=== PATIENT | female | born 1940 | race Caucasian/White ===

== ENCOUNTER 2023-12-01 11:25 | Emergency (ER) | payer MEDICARE, SELFPAY ==
[2023-12-01] VITALS (7 sets, daily range): BP systolic 120–162; BP diastolic 64–94
[2023-12-01 12:43] LABS: % Basophils 1.3 % (0-2); % Immature Granulocytes 0.4 % (0-0.5); % Lymphocytes 13.4 % (20.5-51.1); % Monocytes 9.2 % (1.7-9.3); % Neutrophils 71.7 % (42.2-75.2); Absolute Basophils 0.1 10^3/uL (0-0.2); Absolute Eosinophils 0.3 10^3/uL (0-0.7); Absolute Lymphocytes 0.9 10^3/uL (1.2-3.4); Absolute Monocytes 0.7 10^3/uL (0.1-0.6); Hematocrit 35.3 % (37.0-47.0); Mean Corpuscular Hgb 32.5 pg (27.0-31.0); Mean Corpuscular Volume 95.7 fL (81.0-99.0); Mean Platelet Volume 9.9 fL (7.4-10.4); Nucleated Red Blood Cells % 0 %; Platelet Count 199 10^3/uL (130-400); Red Blood Cell Count 3.69 10^6/uL (4.20-5.40); Red Cell Dist. Width 12.6 % (11.5-14.5)
[2023-12-01 13:00] LABS: Blood Urea Nitrogen 27 mg/dl (7-17); Calcium 9.2 mg/dl (8.4-10.2); Carbon Dioxide 25 mmol/L (22-30); Chloride 108 mmol/L (98-107); Glucose 96 mg/dl (70-99); Sodium 137 mmol/L (135-145)
--- NOTE | 2023-12-01 13:17 | ED.GENMED ---
History of Present Illness
General
Chief Complaint: Cardiac Symptoms
Source: patient
Exam Limitations: none
Time Seen by Provider: 12/01/23 12:09
Travel History
Have you had any contact with someone who has COVID-19?: No
Do you have any symptoms of coronavirus? Fever > 100 degrees, chills, cough, shortness of breath, sore throat, loss of taste or smell, muscle aches, or headache?: No
History of Present Illness
History of Present Illness:
82-year-old female with a few episodes of lightheadedness this morning. Came on suddenly. Recent vein stripping. No chest pain or shortness of breath.
Past History
Past History
ED Past Medical History: HTN, Hypercholesterolemia, Hypothyroidism and Other (Cardiomyopathy)
ED Past Surgical History: Cardiac (ICD, ablation)
Social History
Tobacco: Former smoker (Quit 1986)
Alcohol: None
Drug: None
Personal:
Living: with family
Review of Systems
Review of Systems
All Other Systems: Not applicable
Respiratory: Reports no symptoms
Cardiac: Denies chest pain
ABD/GI: Reports no symptoms
Phy Exam
Physical Exam
Physical Exam:
GENERAL: Alert and oriented in no apparent distress
EYE: Orbits normal.
NECK: Supple
CARDIAC: Regular rate and rhythm without any obvious murmurs. Defibrillator left upper chest wall
LUNGS: Clear breath sounds,normal
ABDOMEN: Soft, without focal tenderness or distention
NEUROLOGICAL: Alert and oriented , grossly non-focal
SKIN: Warm and dry, no rash or lesion, no discoloration, skin intact.
MUSCULOSKELETAL: No edema,no deformity.Good color. Mild varicose veins of the lower extremities
PSYCH: Normal and appropriate interaction. GENERAL: Alert and oriented in no apparent distress
Course
Orders/Labs/Results
Orders:
Orders
12/01/23 11:31
EKG [Electrocardiogram (*1)] Urgent
Reason for Study: Syncope
EKG- Treatment ONCE
12/01/23 12:22
IV Insert/Care/Rem.- Treatment PRN
Pulse Ox/cont/shift [RESP] Stat
Quantity: 1
12/01/23 12:26
Cardiac Monitoring- Treatment ONCE
12/01/23 12:30
Basic Metabolic Panel Urgent
Complete Blood Count/With Diff Urgent
Troponin I Urgent
12/01/23 14:35
CT Head W/o Iv Contrast Urgent
Comment:
Reason For Exam: Recent head injury/near syncope
12/01/23 15:58
US Periph Venous LOWER Ext Raman Urgent
Comment:
Reason For Exam: Recent vein surgery. Evaluate for DVT
Abnormal Lab Results
12/01/23
12:30
RBC 3.69 L 10^6/uL
(4.20-5.40)
Hct 35.3 L %
(37.0-47.0)
MCH 32.5 H pg
(27.0-31.0)
Absolute Lymphs (auto) 0.9 L 10^3/uL
(1.2-3.4)
Absolute Monos (auto) 0.7 H 10^3/uL
(0.1-0.6)
Lymphocytes % 13.4 L %
(20.5-51.1)
Chloride 108 H mmol/L
(98-107)
BUN 27 H mg/dl
(7-17)
Creatinine 1.1 H mg/dL
(0.6-1.0)
12/01/23 12:30
12/01/23 12:30
Vital Signs
Initial and Last Documented VS:
Initial Vital Signs
Temp Pulse Resp BP Pulse Ox
97.9 F 77 17 162/94 99
12/01/23 11:30 12/01/23 11:30 12/01/23 11:30 12/01/23 11:30 12/01/23 11:30
Last Documented Vital Signs
Temp Pulse Resp BP Pulse Ox
97.9 F 72 15 142/76 98
12/01/23 11:30 12/01/23 16:18 12/01/23 15:45 12/01/23 17:22 12/01/23 17:30
*Radiology
Radiology exam reviewed: radiology read reviewed (Head CT negative. Leg ultrasounds negative)
*Critical Care Note
Total Time (30-74mins, 75-104mins- exclusive of procedures): Not Applicable
Update Note
Update Note:
Patient is having a pulmonary emboli study done primarily because of the near syncope and vein stripping last week. Also a head CT because she hit her head last week and feels she has been off since then. Medically she is stable. She has had no
arrhythmias here. Pacemaker was interrogated and shows no arrhythmias. She has a long AV delay but this apparently is normal and expected. Also reviewed with cardiology. If all is negative patient can be discharged to follow-up
Patient notes that she feels she has had some of the symptoms since she hit her head last week
Patient notes dye allergy with hives from IV dye. With reevaluation patient is a very low risk for PE. No chest pain no shortness of breath no hypoxia. Feel the risk of dye allergy outweighs the remote benefit of a pulmonary emboli study. We
will however do leg ultrasounds since the reason the study was even ordered was because of the symptoms with recent vein surgery
ED Attending Note
-
Portions of this chart may have been created with voice recognition software.� Occasional wrong word or��sound alike� substitutions may have occurred due to the inherent limitations of voice recognition software.
Discharge Plan
Departure
Patient Disposition: Home (Routine Discharge)
Date of Disposition: 12/01/23
Time of Disposition: 17:49
Patient with high blood pressure during this ER visit?: Yes
Discharge Problem:
Near syncope, Recent head injury
Instructions: Head Injury in Adults (DC), Near Fainting (DC), BLOOD PRESSURE
Prescriptions:
No Action
levothyroxine 88 MCG tablet
88 mcg PO DAILY@0700
montelukast 10 MG tablet
10 mg PO QPM
amiodarone [Pacerone] 100 MG tablet
100 mg PO DAILY
pravastatin 40 MG tablet
40 mg PO QPM
metoprolol succinate 100 MG tablet extended release 24 hr
100 mg PO NOON
alprazolam 0.25 MG tablet
0.25 mg PO DAILYPRN PRN (Reason: anxiety)
cholecalciferol (vitamin D3) 2,000 UNITS tablet
1,000 units PO DAILY
PreserVision AREDS-2 1 EACH capsule
1 ea PO BID
Arnuity Ellipta 100 MCG blister with device
1 inh IH R DAILY
furosemide 40 MG tablet
40 mg PO MOTUWETH
potassium chloride [Klor-Con M20] 20 MEQ tablet,ER particles/crystals
20 meq PO MOTUWETH
biotin 5,000 mcg Tablet,Chewable
5,000 mcg PO DAILY
acetaminophen [Tylenol 8 Hour] 650 mg Tablet Extended Release
1,300 mg PO Q12H
Referrals:
Twila Ordonez, [Family Provider] - Follow up in 2-3 days
Activity Restrictions/Additional Instructions:
Also call your mechanical equipment test engineer for close follow-up
Interventions
Interventions:
*Risk Screen - Suicide Last Done: 12/01/23 11:31
*General Assessment Last Done: 12/01/23 11:31
*Neglect/Abuse Screening Last Done: 12/01/23 11:31
*ED COVID-19 Vaccine History Last Done: 12/01/23 11:30
*Nursing Disposition Last Done: 12/01/23 17:55
ED- Pulmonary Assessment Last Done: 12/01/23 12:39
ED- Cardiac Assessment Last Done: 12/01/23 12:39
Discharge Date and Time
Discharge Date/Time: 12/01/23 18:00
[2023-12-01 13:19] LABS: Troponin I < 0.012 ng/ml
== END 2023-12-01 18:00 | disposition home or self-care (01) ==
LOC: EMR 11:25
PROVIDERS: EMERGENCY PHYSICIAN Emergency Medicine; FAMILY PHYSICIAN Family Medicine
DX: R55 Syncope and collapse (principal); I10 Essential (primary) hypertension; E78.00 Pure hypercholesterolemia, unspecified; I83.93 Asymptomatic varicose veins of bilateral lower extremities; E03.9 Hypothyroidism, unspecified; I42.9 Cardiomyopathy, unspecified; Z98.890 Other specified postprocedural states; Z95.810 Presence of automatic (implantable) cardiac defibrillator; Z87.828 Personal history of other (healed) physical injury and trauma; Z87.891 Personal history of nicotine dependence; M79.604 Pain in right leg; M79.605 Pain in left leg; R22.43 Localized swelling, mass and lump, lower limb, bilateral
CPT/HCPCS: 70450; 80048; 84484; 85025; 93005; 93289; 93970; 99285

== ENCOUNTER → 2024-01-07 13:09 | Outpatient (REF) | payer MEDICARE, SELFPAY ==
[2024-01-07 14:33] LABS: % Basophils 0.9 % (0-2); % Eosinophils 2.1 % (0-6); % Immature Granulocytes 0.4 % (0-0.5); % Lymphocytes 13.6 % (20.5-51.1); % Monocytes 9.3 % (1.7-9.3); % Neutrophils 73.7 % (42.2-75.2); Absolute Basophils 0.1 10^3/uL (0-0.2); Absolute Eosinophils 0.2 10^3/uL (0-0.7); Absolute Lymphocytes 1.1 10^3/uL (1.2-3.4); Absolute Monocytes 0.8 10^3/uL (0.1-0.6); Hematocrit 38.7 % (37.0-47.0); Hemoglobin 12.7 g/dL (12.0-16.0); Mean Corp Hgb Conc. 32.8 g/dL (33.0-37.0); Mean Corpuscular Volume 97.5 fL (81.0-99.0); Mean Platelet Volume 9.7 fL (7.4-10.4); Nucleated Red Blood Cells % 0 %; Platelet Count 192 10^3/uL (130-400); Red Blood Cell Count 3.97 10^6/uL (4.20-5.40); Red Cell Dist. Width 13.7 % (11.5-14.5); White Blood Cell Count 8.2 10^3/uL (4.8-10.8)
[2024-01-07 14:56] LABS: Erythrocyte Sed Rate 26 mm/hour (0-20)
[2024-01-07 16:20] LABS: TSH 0.05 uIU/ml (0.47-4.68)
== END ==
LOC: REG 13:09
PROVIDERS: ATTENDING PHYSICIAN Internal Medicine Hematology & Oncology; FAMILY PHYSICIAN Family Medicine
DX: D53.9 Nutritional anemia, unspecified (principal); D72.819 Decreased white blood cell count, unspecified
CPT/HCPCS: 36415; 84443; 85025; 85652

== ENCOUNTER 2024-03-07 10:24 | Day surgery (SDC) | payer MEDICARE, SELFPAY ==
--- NOTE | 2024-03-07 12:35 | ITS.CL.CARDI ---
Medical Services Coordinator - Cardioversion
Cardioversion
Procedure Report:
Procedure: Direct current electrical cardioversion
Pre-operative diagnosis: Persistent atrial fibrillation
Post-operative diagnosis: Persistent atrial fibrillation status post DC cardioversion to sinus rhythm
Anesthesia: MAC
Attending Physician: Nabil Ascencio MD
Procedure Description: The patient was brought to the electrophysiology laboratory in the fasting state. Adherence to anticoagulation regimen was confirmed. Informed consent was obtained from the patient prior to the start of the procedure.
Electrodes were placed on the patient and connected to an external defibrillator. Monitoring of blood pressure, ECG tracings, and pulse oximetry was initiated. The pads were applied to the patient in the anterior and posterior positions. The patient
was sedated by the anesthesiologist. A 200 joule biphasic synchronized shock was delivered to the patient under MAC anesthesia. Sinus rhythm was successfully restored. The patient recovered uneventfully from MAC anesthesia. There were no immediate
post-procedure complications. The patient left the lab in good condition. The attending physician was present throughout the entire procedure.
Impression: Successful direct current cardioversion with mu-ism of sinus rhythm after one 200 joule biphasic synchronized shock.
[2024-03-07 12:49] VITALS: BMI 33.8
== END 2024-03-07 13:30 | disposition home or self-care (01) ==
LOC: CATH 10:24
PROVIDERS: ATTENDING PHYSICIAN Internal Medicine Cardiovascular Disease; FAMILY PHYSICIAN Family Medicine
DX: I48.19 Other persistent atrial fibrillation (principal); I45.10 Unspecified right bundle-branch block; I50.42 Chronic combined systolic (congestive) and diastolic (congestive) heart failure; Z95.810 Presence of automatic (implantable) cardiac defibrillator; E03.9 Hypothyroidism, unspecified; E78.5 Hyperlipidemia, unspecified; Z87.891 Personal history of nicotine dependence; Z79.01 Long term (current) use of anticoagulants
CPT/HCPCS: 92960; 93005

== ENCOUNTER → 2024-03-15 13:26 | Outpatient (REF) | payer MEDICARE, SELFPAY ==
[2024-03-15 16:17] LABS: Free T4 1.12 ng/dl (0.78-2.19)
[2024-03-15 16:31] LABS: TSH 0.14 uIU/ml (0.47-4.68)
== END ==
LOC: RAD 13:26
PROVIDERS: ATTENDING PHYSICIAN Family Medicine
DX: E03.9 Hypothyroidism, unspecified (principal)
CPT/HCPCS: 36415; 84439; 84443

== ENCOUNTER 2024-05-07 10:40 | Emergency (ER) | payer MEDICARE, SELFPAY ==
[2024-05-07 10:45] VITALS: BP 108/74
--- NOTE | 2024-05-07 11:12 | ED.MUSCINJ ---
HPI-Injury
General
Chief Complaint: Musculo-Skeletal Complaint
Source: patient
Exam Limitations: none
Time Seen by Provider: 05/07/24 11:03
History of Present Illness-Injury
Initial Injury comments:
83-year-old female on Eliquis presents with increasing pain to the right knee starting several weeks ago getting worse. She has a history of arthritis to the knee. She gets lubricant injections and every 3 months For cortisone shot in her knee.
She is due to receive a cortisone shot next week however the pain increased and she cannot wait that long. She denies any fever. No new injury. No other complaints at this time
Past History
Past History
ED Past Medical History: HTN, Hypercholesterolemia, Hypothyroidism and Other (Cardiomyopathy)
ED Past Surgical History: Cardiac (ICD, ablation)
Social History
Tobacco: Former smoker (Quit 1986)
Alcohol: None
Drug: None
Personal:
Living: with family
Phy Exam
Physical Exam
Physical Exam:
General: Well-appearing female no acute respiratory distress
HEENT: Normocephalic atraumatic
Musculoskeletal exam: Right knee with moderate effusion good motion. No overlying erythema or warmth. Mildly diffusely tender.
Extremities: No cyanosis
Injury Course
Orders/Labs/Results
Orders:
Orders
05/07/24 10:47
Knee, Right 4 or More Views [CR Knee- Right 4 Or More View*] Urgent
Comment: scheduled for cortisone shot 05/15
Reason For Exam: ongoing right knee pain getting worse
05/07/24 11:18
Triamcinolone Acetonide [Kenalog-10] 10 mg INTRAARTIC NOW STA
MDM/Problems Addressed
Differential Diagnosis Includes:
Right knee pain. Consider acute exacerbation of chronic arthritis versus sprain. Do not suspect septic arthritis given lack of fever or skin changes and good range of motion.
Patient cannot tolerate oral NSAIDs secondary to anticoagulated state. Patient requested defer the need to be drained and a cortisone shot to be provided. Did explain the risks of this including bleeding and introducing infection. She understood
this but we will go ahead with the procedure. Felicity ordered.
I reviewed personally the x-rays of the right knee which showed degenerative changes with moderate effusion
*Critical Care Note
Total Time (30-74mins, 75-104mins- exclusive of procedures): Not Applicable
Update Note
Update Note:
The left knee was sterilely prepped with Betadine and anesthetized in a local fashion using 1% lidocaine. The knee was then aspirated. Approximately 25 mL of blood-tinged clear fluid was aspirated from the knee. Through the same needle, Kenalog
lidocaine and Marcaine were back into the knee. Pressure was held directly over the injection site with gauze for several minutes then wrapped with an Jeff bandage. Stable for discharge with follow-up. Do not septic arthritis
ED Attending Note
-
Portions of this chart may have been created with voice recognition software.� Occasional wrong word or��sound alike� substitutions may have occurred due to the inherent limitations of voice recognition software.
Discharge Plan
Departure
Patient Disposition: Home (Routine Discharge)
Date of Disposition: 05/07/24
Time of Disposition: 12:03
Patient with high blood pressure during this ER visit?: No
Discharge Problem:
Effusion of knee
Instructions: Muscle and Bone Pain (DC)
Prescriptions:
No Action
levothyroxine 88 MCG tablet
88 mcg PO DAILY@0700
montelukast 10 MG tablet
10 mg PO QPM
amiodarone [Pacerone] 100 MG tablet
100 mg PO DAILY
pravastatin 40 MG tablet
40 mg PO QPM
metoprolol succinate 100 MG tablet extended release 24 hr
100 mg PO NOON
alprazolam 0.25 MG tablet
0.25 mg PO DAILYPRN PRN (Reason: anxiety)
cholecalciferol (vitamin D3) 2,000 UNITS tablet
1,000 units PO DAILY
PreserVision AREDS-2 1 EACH capsule
1 ea PO BID
Arnuity Ellipta 100 MCG blister with device
1 inh IH R DAILY
furosemide 40 MG tablet
40 mg PO MOTUWETH
potassium chloride [Klor-Con M20] 20 MEQ tablet,ER particles/crystals
20 meq PO MOTUWETH
biotin 5,000 mcg Tablet,Chewable
5,000 mcg PO DAILY
acetaminophen [Tylenol 8 Hour] 650 mg Tablet Extended Release
1,300 mg PO Q12H
Referrals:
Twila Ordonez, [Family Provider] -
Activity Restrictions/Additional Instructions:
Keep Jeff bandage on for the remainder of today. Use Tylenol if needed for pain. Continue to follow-up with orthopedics. Return if needed
Interventions
Interventions:
ED-Musculoskeletal Assessment Last Done: 05/07/24 11:48
Discharge Date and Time
Print Language: UKRAINIAN
== END 2024-05-07 12:08 | disposition home or self-care (01) ==
LOC: EMR 10:40
PROVIDERS: EMERGENCY PHYSICIAN Emergency Medicine; FAMILY PHYSICIAN Family Medicine
DX: M25.462 Effusion, left knee (principal); Z87.891 Personal history of nicotine dependence
CPT/HCPCS: 99284; 20610; 73564

== ENCOUNTER → 2024-05-12 13:10 | Outpatient (REF) | payer MEDICARE, SELFPAY ==
[2024-05-12 14:51] LABS: Free T3 1.69 pg/ml (2.77-5.27); Free T4 0.95 ng/dl (0.78-2.19)
[2024-05-12 15:04] LABS: TSH 0.24 uIU/ml (0.47-4.68)
[2024-05-14 20:36] LABS: Thyroid Peroxidase Ab (TPO) 59.5 IU/mL (0.0-9.0)
[2024-05-15 01:34] LABS: Thyroid Stim. Immunoglobulin <0.10 IU/L (<=0.54)
[2024-05-15 02:34] LABS: TSH Receptor Antibody 1.58 IU/L (<=1.75)
== END ==
LOC: REG 13:10
PROVIDERS: ATTENDING PHYSICIAN Internal Medicine Endocrinology, Diabetes & Metabolism; FAMILY PHYSICIAN Family Medicine
DX: E06.3 Autoimmune thyroiditis (principal)
CPT/HCPCS: 36415; 83520; 84432; 84439; 84443; 84445; 84481; 86376; 86800

== ENCOUNTER → 2024-05-24 13:25 | Outpatient (REF) | payer MEDICARE, SELFPAY | LOC: RAD 13:25 | PROVIDERS: ATTENDING PHYSICIAN Internal Medicine Endocrinology, Diabetes & Metabolism; FAMILY PHYSICIAN Family Medicine | DX: E06.3 Autoimmune thyroiditis (principal) | CPT/HCPCS: 76536 ==

== ENCOUNTER → 2024-06-22 09:39 | Day surgery (SDC) | payer MEDICARE, SELFPAY ==
--- NOTE | 2024-06-22 11:33 | ITS.CL.CARDI ---
Paper Twister Tender - Cardioversion
Cardioversion
Procedure Report:
Date of Procedure:
Procedure: Cardioversion
Indication: Symptomatic atrial fibrillation
Performing Physician: Arik Riley MD
Technique: The patient was brought to the holding area. Signed informed consent was obtained. A time out was called and performed. The patient was anesthetized by the anesthesia service. Anticoagulation status was reviewed and appropriate. R2 pads
were placed anteriorly and posteriorly. A 200 J synchronized biphasic shock restored normal sinus rhythm without significant bradycardia. There were no complications.
Conclusion: Uncomplicated cardioversion from atrial fibrillation to sinus rhythm.
Recommendation: Routine post cardioversion care. Continue assisted anticoagulation.
== END ==
LOC: CATH 09:39
PROVIDERS: ATTENDING PHYSICIAN Internal Medicine Cardiovascular Disease; FAMILY PHYSICIAN Family Medicine; OTHER PHYSICIAN Internal Medicine Cardiovascular Disease
DX: I48.91 Unspecified atrial fibrillation (principal); R06.02 Shortness of breath; I45.10 Unspecified right bundle-branch block; I50.42 Chronic combined systolic (congestive) and diastolic (congestive) heart failure; E78.5 Hyperlipidemia, unspecified; E03.9 Hypothyroidism, unspecified; Z95.810 Presence of automatic (implantable) cardiac defibrillator; Z87.891 Personal history of nicotine dependence; Z79.01 Long term (current) use of anticoagulants
CPT/HCPCS: 92960; 93005

== ENCOUNTER → 2024-08-09 13:43 | Outpatient (REF) | payer MEDICARE, SELFPAY | LOC: WDC 13:43 | PROVIDERS: ATTENDING PHYSICIAN Family Medicine | DX: Z12.31 Encounter for screening mammogram for malignant neoplasm of breast (principal) | CPT/HCPCS: 77063; 77067 ==

== ENCOUNTER 2024-08-31 10:57 | Day surgery (SDC) | payer MEDICARE, SELFPAY ==
[2024-08-11 10:45] VITALS: BMI 32.8
--- NOTE | 2024-08-31 11:15 | W.ICD.CONTRA ---
Post ICD/NEWSCAST DIRECTOR-D
-
History of SD?: No
LV Function
Left ventricular function study result?: Ejection Fraction >/= 40%
ACEI/ARB/ARNI
Patient already on ACEI/ARB/ARNI: No
ACEI/ARB/ARNI Not Indicated: Left Ventricular EF >/= 40%
Beta-Akira
Patient already on Beta Akira: Yes
[2024-08-31 11:16] VITALS: BMI 32.1
[2024-08-31 11:24] VITALS: BP 165/97
[2024-08-31 11:30] VITALS: BP 165/97
[2024-08-31 14:07] VITALS: BP 117/63
[2024-08-31 14:15] VITALS: BP 112/60
[2024-08-31 14:25] VITALS: BP 117/63
--- NOTE | 2024-08-31 14:36 | ITS.CL.ICD ---
Cable Technician - ICD
Implantable Cardioverter Defibrillator
Procedure Report:
Date of Procedure: August 31, 2024
Patient : 1940
Procedures: Dual-chamber ICD implantation
Indication: 1) Class III CHF, LVEF 50% 2) paced QRS and prior hokum with primary prevention indication for ICD implantation. 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 Presents for ICD generator change.
�
Implants:
Pulse Generator: Medtronic; Model# DD PA 2 D1; Serial#�[id number] implanted today
Atrial Lead: Medtronic: Model# [id number]; Serial# [id number] [ ].
Right Ventricular Lead: Medtronic; Model# 6947; Serial#[id number] [ ] V.
Explants:
Medtronic ICD product number DD BB 1 D1 serial number [id number]
�
Technique: The patient was prepped and draped in the usual fashion. Local anesthetic was applied to the left prepectoral subcutaneous tissue. The chronic incision was opened.. The leads were appropriately removed from the old device. The pocket was
irrigated with antibiotic solution. The new device was brought to the field and the chronic device was removed from the field and the new device was connected to the chronic leads. The device and leads were placed in the pocket and the device was
secured to pectoralis muscle and facia. The incision was closed with absorbable sutures. The estimated blood loss was minimal. There were no complications. Device based testing was performed as described below.
�
System Analysis:
RA lead: P: 2.1 mV; Threshold: 1.0 V @ 0.5 ms; Impedance: 304 ohms.
RV lead: R: 6.6 mV; Threshold: 0.875 V @ 0.5 ms; Impedance: 532 ohms.
�
Final Programming: Tachy: VT/VF:188; Ankush: DDDR 60-120. The sensed and paced AV intervals were reprogrammed to 140 ms and 160 ms to give her physiologic AV delays. Underlying conduction and peer intervals approximately 350 ms for which she felt
fatigued.
�
Conclusion: Uncomplicated dual ICD implant
�
Recommendation: Routine post ICD generator care. Resume oral anticoagulation Wednesday morning. September 02.
�
cc: Dr. Dayo Presley
�
[2024-08-31] MEDS: TYLENOL 650 MG PO (14:38)
== END 2024-08-31 14:57 | disposition home or self-care (01) ==
LOC: CATH 10:57
PROVIDERS: ATTENDING PHYSICIAN Internal Medicine Cardiovascular Disease; FAMILY PHYSICIAN Family Medicine
DX: Z45.02 Encounter for adjustment and management of automatic implantable cardiac defibrillator (principal); I47.20 Ventricular tachycardia, unspecified; I49.5 Sick sinus syndrome; Z79.899 Other long term (current) drug therapy; I48.19 Other persistent atrial fibrillation; J45.909 Unspecified asthma, uncomplicated; E05.00 Thyrotoxicosis with diffuse goiter without thyrotoxic crisis or storm; M19.90 Unspecified osteoarthritis, unspecified site; E78.5 Hyperlipidemia, unspecified; I11.0 Hypertensive heart disease with heart failure; I50.32 Chronic diastolic (congestive) heart failure; R91.1 Solitary pulmonary nodule; J45.30 Mild persistent asthma, uncomplicated; Z87.311 Personal history of (healed) other pathological fracture; K20.90 Esophagitis, unspecified without bleeding; Z96.652 Presence of left artificial knee joint; Z90.710 Acquired absence of both cervix and uterus; Z79.890 Hormone replacement therapy; Z90.49 Acquired absence of other specified parts of digestive tract; Z96.641 Presence of right artificial hip joint; M85.80 Other specified disorders of bone density and structure, unspecified site; G47.00 Insomnia, unspecified; Z88.2 Allergy status to sulfonamides; Z88.8 Allergy status to other drugs, medicaments and biological substances; Z91.041 Radiographic dye allergy status; I42.2 Other hypertrophic cardiomyopathy; Z68.32 Body mass index [BMI] 32.0-32.9, adult; E66.9 Obesity, unspecified; Z79.01 Long term (current) use of anticoagulants; Z87.891 Personal history of nicotine dependence
CPT/HCPCS: 33263; C1721

== ENCOUNTER → 2024-11-24 10:36 | Outpatient (REF) | payer MEDICARE, SELFPAY | LOC: RAD 10:15 | PROVIDERS: ATTENDING PHYSICIAN Internal Medicine Cardiovascular Disease; FAMILY PHYSICIAN Family Medicine | DX: I48.19 Other persistent atrial fibrillation (principal) | CPT/HCPCS: 75572; Q9967 ==

== ENCOUNTER 2024-12-06 07:24 | Day surgery (SDC) | payer MEDICARE, SELFPAY ==
[2024-12-06 08:37] VITALS: BMI 32.7
[2024-12-06] MEDS: ELIQUIS 5 MG PO (10:27)
== END 2024-12-06 10:59 | disposition home or self-care (01) ==
LOC: CATH 07:24
PROVIDERS: ATTENDING PHYSICIAN Internal Medicine; FAMILY PHYSICIAN Family Medicine; OTHER PHYSICIAN Internal Medicine Cardiovascular Disease
DX: I48.19 Other persistent atrial fibrillation (principal); I08.3 Combined rheumatic disorders of mitral, aortic and tricuspid valves; I47.20 Ventricular tachycardia, unspecified; I45.10 Unspecified right bundle-branch block; I50.42 Chronic combined systolic (congestive) and diastolic (congestive) heart failure; I42.2 Other hypertrophic cardiomyopathy; E78.5 Hyperlipidemia, unspecified; E03.9 Hypothyroidism, unspecified; Z95.810 Presence of automatic (implantable) cardiac defibrillator; Z87.891 Personal history of nicotine dependence; Z79.01 Long term (current) use of anticoagulants
CPT/HCPCS: 93312; 93320; 93325

== ENCOUNTER 2024-12-08 10:28 | Day surgery (SDC) | payer MEDICARE, SELFPAY ==
[2024-11-20 09:59] VITALS: BMI 34.0
[2024-12-08] VITALS (19 sets, daily range): BP systolic 94–136; BP diastolic 49–107; BMI 33.8
[2024-12-08 11:41] LABS: Glucose - Point of Care 89 mg/dl (70-99)
[2024-12-08 14:18] LABS: ACT-LR - POC 289 Seconds (116-155)
[2024-12-08 14:37] LABS: ACT-LR - POC 298 Seconds (116-155)
--- NOTE | 2024-12-08 14:57 | ITS.CL.ABL ---
Survey Operations Director - Ablation
Ablation
Procedure Report:
ELECTROPHYSIOLOGY ABLATION STUDY
DATE:: December 08, 2024�����������������������������REFERRING: Dr. Ray Presley
INDICATION: Persistent supraventricular tachycardia in the form of atrial fibrillation.��History of HOCM, septal ablation, dual-chamber ICD
HISTORY: See H and P.��As above
ANTIARRHYTHMIC DRUG: Amiodarone
PRE-PROCEDURE KWASI: No intracardiac thrombus
PRESENTING RHYTHM: AV pacing
'TIME-OUT':��called and confirmed.
SEDATION/ANESTHESIA:��provided via the anesthesia department using general anesthesia (LMA).
INTRAVENOUS/ARTERIAL ACCESS:
Right femoral venous - 8Fr
Left femoral venous - 8 Fr, 6 Fr
Ultrasound guidance for bilateral femoral vein access was utilized by me to obtain access with demonstration of normal anatomy
CHADS-VASC Score:
HAS-Bled Score
PROCEDURE:
1.��A decapolar CS catheter was placed within the CS for mapping and pacing.��This was also used as the reference catheter for the 3-D map. After informed consent and sedation by anesthesia the dual-chamber ICD was interrogated and initially placed
at DDD 60 to 130 bpm with detection for ventricular arrhythmias off. At the end of the procedure the patient was placed at DDDR with VF zone of 188 and a VT zone of 140.
2. The intracardiac ultrasound catheter was positioned in the RA to identify the FO for targeting of transseptal puncture, assist��in identification of the pulmonary vein ostia, monitoring pre and post ablation pulmonary vein flow velocities,
monitoring for 'bubble' formation during RF application as a sign of thermal injury,��and to monitor for pericardial effusion during mapping and ablation procedure.���Left atrial size, LV ejection fraction, and pulmonary vein flows were monitored
pre and post ablation procedure. The other valves were inspected and found to be free of significant regurgitation or stenosis. Trace posterior pericardial effusion preablation which was stable post ablation.
3.��Half of the calculated heparin bolus was administered prior to the first transeptal puncture.��Transseptal puncture was performed to diagnose RA and LA pressure so that safety of LA mapping and ablation could be further assessed, and to access
the left atrium and pulmonary veins for mapping and ablation.��This entailed advancing an 10 [place] steerable sheath with dilator into the superior vena cava and withdrawing both (monitoring intracardiac ultrasound, fluoroscopy and tip pressure)
with the tip oriented toward the atrial septum.��The fossa ovalis was engaged (indicated by sudden displacement of the sheath tip as well as tenting of the fossa seen on intracardiac ultrasound).��Left atrial access required a pass with the
[place] needle extended.��Left atrial catheter position was confirmed by pressure monitoring (RA mean pressure 8 mm Hg and LA mean presure 14 mm Hg), LA saturation (99%),��as well as fluoroscopy.��The sheath was advanced over the dilator and
positioned in the left atrium.��After the initial electroanatomic map the ProTrac wire was brought to the left atrium and the 10 [place] steerable sheath was removed. Over this wire the Madeleine drive sheath was brought to the left atrium. �The
remainder of the calculated heparin bolus was administered and heparin was
infused to maintain ACT at 300 -350 seconds throughout the case.
4.��RA pacing was performed via the proximal decapolar poles and LA pacing was performed via the distal decapolr poles.
5. A quadrapolar catheter was first positioned at the His position for His Bundle recording which was tagged via the 3-D Navex sytem, and then passed to the RVA for RV pacing and recording.
6. The multipolar catheter and the PFA catheter were placed in each of the LIPV, LSPV, RSPV and the RIPV.��
7.��Next, a 3-D map was created using Navex.���A 3-D reconstructed CT image was compared to the 3-D Navex map to assist in anatomic interpretation, mapping and ablation.��The CT image and the NavX image were fused.
8. A total of 56 lesions were given to the left atrium. Basket and all of pose to each of the 4 pulmonary veins and flower post to the roof posterior wall and floor. Remapping with the multipolar catheter demonstrated electrical silence in the
left veins posterior wall roof and floor of the left atrium and the right inferior pulmonary vein. There was a small area at the antrum of the right superior pulmonary vein at the septum which had a diffuse low amplitude fractionated signal which
was addressed with 5 additional olive and basket poses. This rendered the right superior pulmonary vein durably isolated. Entrance next block was confirmed in all the pulmonary veins. Entrance exit block was confirmed in the roof posterior wall
and floor of the left atrium. Follow-up EP study with atrial burst pacing and extrastimuli did not demonstrate any other inducible tachyarrhythmias.
9. No AV conduction was noted with atrial pacing. As above the dual-chamber ICD tacky therapies were turned back on and DDDR 6130 bpm with stable lead parameters.
TOTAL FLOURO TIME: 15.6 minutes 112 mGy
TOTAL RF DURATION: 0 minutes
REVERSAL OF HEPARIN: 35 mg of protamine, slow IV administration
COMPLICATIONS:
None
Intracardiac US shows no pericardial effusion post ablation.
SUMMARY:��
Complex left atrial mapping and ablation.
Isolation of all 4 pulmonary veins as well as the roof floor and posterior wall left atrium.
RECOMMENDATIONS:
1. Admit to monitored bed.��Anticipate discharge on December 09
2. Resume anticoagulation
3.��Amiodarone x 1 month then discontinue
4.� Continue anticoagulation life long given her hypertrophic cardiomyopathy
Copy to: Dr. Dayo Presley
[2024-12-08 15:25] LABS: Glucose - Point of Care 108 mg/dl (70-99)
[2024-12-08] MEDS: TYLENOL 650 MG PO ×2 (15:55→23:34)
--- NOTE | 2024-12-08 16:58 | CM ---
spoke to pt in room, she is prev indep, she lives alone in an apt with no step stoenter. she denies any dc planning needs or dme's. plan is for dc to home when medically stable.
[2024-12-08] MEDS: SINGULAIR 10 MG PO (17:30)
[2024-12-08] MEDS: PRAVACHOL 40 MG PO (17:30)
[2024-12-08] MEDS: FLOVENT 44 MCG INHALER INH (17:53)
[2024-12-08] MEDS: ELIQUIS 5 MG PO (19:47)
--- NOTE | 2024-12-08 22:46 | PTCARENOTE ---
Pt rec'd at change of shift in bed. B/l groin drsg dry and intact. Assisted oob to BR at 1940. groins stable post ambulation and remain intact.
AV paced on telemetry. call tapia within reach.
[2024-12-09 03:56] VITALS: BMI 34.2
[2024-12-09 03:58] VITALS: BP 121/65
[2024-12-09] MEDS: SYNTHROID 75 MCG PO (04:10)
[2024-12-09 04:46] LABS: Hematocrit 32.2 % (37.0-47.0); Hemoglobin 10.5 g/dL (12.0-16.0); Mean Corp Hgb Conc. 32.6 g/dL (33.0-37.0); Mean Corpuscular Hgb 32.2 pg (27.0-31.0); Mean Corpuscular Volume 98.8 fL (81.0-99.0); Mean Platelet Volume 10.3 fL (7.4-10.4); Platelet Count 185 10^3/uL (130-400); Red Blood Cell Count 3.26 10^6/uL (4.20-5.40); Red Cell Dist. Width 13.9 % (11.5-14.5); White Blood Cell Count 10.5 10^3/uL (4.8-10.8)
[2024-12-09 05:11] LABS: Blood Urea Nitrogen 29 mg/dl (7-17); Calcium 8.9 mg/dl (8.4-10.2); Carbon Dioxide 24 mmol/L (22-30); Chloride 108 mmol/L (98-107); Estimated Creatinine Clearance 46 ml/min; Glucose 128 mg/dl (70-99); Magnesium 2.4 mg/dl (1.6-2.3); Potassium 4.4 mmol/L (3.5-5.1); Sodium 138 mmol/L (135-145); eGFR > 60.00
--- NOTE | 2024-12-09 07:37 | W.PN.CARDCBS ---
Addendum entered and electronically signed by Rojas Mo DO 12/09/24 10:11:
I saw and examined the patient.
The Stable Helper's note was reviewed and I agree with the note.
Comment:
Patient resting comfortably in bed. Denies chest pain, shortness of breath, palpitations, weakness.
GEN: No distress, awake, Ox3
HEENT: supple, anicteric, mmm
LUNGS: CTA bilaterally, no wheezes/rales
CV: Reg, S1/S2, 1/6 syst murmur, no rub or gallop
ABD: soft, BS+, NT/ND
EXT: No edema, clubbing or cyanosis; right and left groins clean dry intact without evidence of hematoma and +2 pedal/distal pulses
NEURO: Gross non-focal
SKIN: No rash, warm, dry, pink
Telemetry a paced V paced rare PVC
A/P as below
Patient doing well overall status post PFA PVI, PWI using Farpulse/Ensite for symptomatic persistent atrial fibrillation
OAC resumed 12/08/2024, tolerating amiodarone
No recurrence of atrial arrhythmia overnight
Bilateral groin site intact (C/D/I)
Plan for amiodarone continuation for 1 month and discontinuation
Outpatient follow-up scheduled
Stable from CV standpoint for discharge
Original Note:
Today's Communication / Plan
-
s/p PVI 12/08/2024
Continue amiodarone 200 mg x 4 weeks then if maintaining sinus rhythm consider discontinuation
Eliquis resumed on the evening of 12/08/2024
Outpatient cardiology follow-up has been arranged
Patient stable for discharge
Impression / Plan
-
PCP: Twila Ordonez
Primary Sound Ranging Crewmember: Dr. Presley
Impression:
Presented 12/08/2024 for recurrent symptomatic persistent atrial fibrillation
Status post PVI of all 4 veins as well as roof floor and posterior wall left atrium 12/08/2024
Multiple prior cardioversions most recently 08/31/2024
Hypertrophic cardiomyopathy
Heart failure with preserved ejection fraction
Ventricular tachycardia
Status post septal ablation
Status post dual-chamber Medtronic ICD, GEN change 08/31/2024
Hypothyroidism/Kyle's/Graves' disease
Hyperlipidemia
Hiatal hernia
Pancreatic cyst
KWASI 12/06/2024: Hyperdynamic LVEF 70 to 75%. Mild to moderate MR. Mild AI. No thrombus detected in left atrial appendage
Plan:
Presented 12/08/2024 for recurrent symptomatic persistent atrial fibrillation with prior history of multiple cardioversions, most recently August 2024
-Status post PVI ablation of all 4 pulmonary veins as well as roof floor and posterior wall left atrium on 12/08/2024
-Patient reports feeling well post PVI and notes rare palpitations no A-fib noted on telemetry during symptoms. She was able to ambulate around her room and go to the bathroom this morning without any issues.
-Postprocedure EKG on 12/09/2024 shows AV paced rhythm as does telemetry per my personal review
-Laboratory studies stable with hemoglobin of 10.5, BUN 29, creatinine 0.9
-Groin sites clean dry intact without evidence of hematoma
-Continue amiodarone 200 mg x 4 weeks then if maintaining sinus rhythm consider discontinuation
-Continue metoprolol indefinitely
-Eliquis resumed on the evening of 12/08/2024
-Outpatient cardiology follow-up has been arranged
-Patient stable for discharge
Progress Note - Sound Ranging Crewmember
Subjective
Date of Service: December 09, 2024
Patient seen and examined. Patient reports she is feeling well. Notes rare palpitations no A-fib noted on telemetry during symptoms. She was able to ambulate around her room and go to the bathroom this morning without any issues.
Objective
Labs:
12/09/24 04:32
12/09/24 04:32
Labs
Hgb 10.5 g/dL (12.0-16.0) L 12/09/24 04:32
Hct 32.2 % (37.0-47.0) L 12/09/24 04:32
Plt Count 185 10^3/uL (130-400) 12/09/24 04:32
Sodium 138 mmol/L (135-145) 12/09/24 04:32
Potassium 4.4 mmol/L (3.5-5.1) 12/09/24 04:32
BUN 29 mg/dl (7-17) H 12/09/24 04:32
Creatinine 0.9 mg/dL (0.6-1.0) 12/09/24 04:32
Glucose 128 mg/dl (70-99) H 12/09/24 04:32
Vital Signs and I&O:
Vital Signs
Temp Pulse Resp BP Pulse Ox
97.5 F 60 20 121/65 98
12/09/24 03:56 12/09/24 05:30 12/09/24 03:56 12/09/24 03:58 12/09/24 03:56
Vital Signs
Temp Pulse Resp BP Pulse Ox
97.5 F 60 20 121/65 98
12/09/24 03:56 12/09/24 05:30 12/09/24 03:56 12/09/24 03:58 12/09/24 03:56
Intake & Output
12/07/24 12/08/24 12/09/24 12/10/24
06:59 06:59 06:59 06:59
Intake Total 1190 / 1190
Balance 1190 / 1190
Physical Exam
Physical Exam
GEN: No distress, awake, Ox3
HEENT: supple, anicteric, mmm
LUNGS: CTA bilaterally, no wheezes/rales
CV: Reg, S1/S2, 1/6 syst murmur, no rub or gallop
ABD: soft, BS+, NT/ND
EXT: No edema, clubbing or cyanosis; right and left groins clean dry intact without evidence of hematoma and +2 pedal/distal pulses
NEURO: Gross non-focal
SKIN: No rash, warm, dry, pink
[2024-12-09] MEDS: FLOVENT 44 MCG INHALER 2 PUFF INH (07:45)
[2024-12-09] MEDS: PACERONE 100 MG PO (07:56)
[2024-12-09] MEDS: ELIQUIS 5 MG PO (07:56)
[2024-12-09 07:58] VITALS: BP 118/69
[2024-12-09] MEDS: TYLENOL 650 MG PO (08:10)
--- NOTE | 2024-12-09 08:12 | W.DS.TRANS ---
DC Summary - Toolroom Machinist
-
Discharge Instructions:
Discharge Diagnosis/Procedures Atrial fibrillation post ablation
Diet Low Cholesterol
Driving Restrictions No driving for 24 hours
Instructions:
Stand-Alone Forms: DC Instructions- Cath/EP Lab
Changes to Home Medications: No
Discharge Medications:
DC Medications w/original date entered in [employer]
amiodarone 100 mg tablet (Pacerone) 100 mg PO DAILY Heart disease/condition 07/17/21
montelukast 10 mg tablet 10 mg PO QPM Lung/breathing issues 07/17/21
alprazolam 0.25 mg tablet 0.125 mg PO HS PRN anxiety 11/20/21
fluticasone furoate 100 mcg/actuation blister powder for inhalation (Arnuity Ellipta) 1 inh IH DAILY asthma 11/20/21
metoprolol succinate 100 mg tablet,extended release 24 hr 100 mg PO NOON Heart disease/condition 11/20/21
pravastatin 40 mg tablet 40 mg PO QPM High cholesterol 11/20/21
vit C 250 mg-vit E 90 mg-zinc 40 mg-copper 1 [id number]-tmayum capsule (PreserVision AREDS-2) 1 ea PO BID Supplement 11/20/21
furosemide 40 mg tablet 40 mg PO MOTUWETH 10/20/22
potassium chloride 20 mEq tablet,extended release(part/cryst) (Klor-Con M) 20 meq PO MOTUWETH 10/20/22
acetaminophen 650 mg tablet,extended release (Tylenol 8 Hour) 1,300 mg PO BID 12/01/23
apixaban 5 mg tablet (Eliquis) 5 mg PO BID 06/22/24
levothyroxine 75 mcg tablet 75 mcg PO DAILY 06/22/24
cholecalciferol (vitamin D3) 25 mcg (1,000 unit) tablet (Vitamin D3) 25 mcg PO DAILY 12/06/24
cetirizine 10 mg tablet (Zyrtec) 10 mg PO DAILY 12/08/24
Home Medication Changes
Discharged home on amiodarone 200 mg daily for 4 weeks then if no reoccurrence of atrial fibrillation will consider discontinuation
Pending Results: No
Total time spent discharging patient (in min): 33
[2024-12-09] MEDS: TOPROL XL 100 MG PO (11:20)
[2024-12-09 11:22] VITALS: BP 104/59
== END 2024-12-09 12:38 | disposition home or self-care (01) ==
LOC: CATH 10:28
PROVIDERS: Nurse Practitioner Adult Health; ATTENDING PHYSICIAN Internal Medicine Cardiovascular Disease; FAMILY PHYSICIAN Family Medicine
DX: I48.19 Other persistent atrial fibrillation (principal); I42.1 Obstructive hypertrophic cardiomyopathy; Z98.890 Other specified postprocedural states; Z95.810 Presence of automatic (implantable) cardiac defibrillator; I50.42 Chronic combined systolic (congestive) and diastolic (congestive) heart failure; E05.00 Thyrotoxicosis with diffuse goiter without thyrotoxic crisis or storm; E06.3 Autoimmune thyroiditis; I11.0 Hypertensive heart disease with heart failure; I47.20 Ventricular tachycardia, unspecified; I47.10 Supraventricular tachycardia, unspecified; K86.2 Cyst of pancreas; K58.9 Irritable bowel syndrome, unspecified; E78.5 Hyperlipidemia, unspecified; J45.909 Unspecified asthma, uncomplicated; Z79.01 Long term (current) use of anticoagulants; M19.90 Unspecified osteoarthritis, unspecified site; K44.9 Diaphragmatic hernia without obstruction or gangrene; Z88.8 Allergy status to other drugs, medicaments and biological substances; Z91.041 Radiographic dye allergy status; Z88.2 Allergy status to sulfonamides
CPT/HCPCS: C1730; C1892; C1759; C1894; 76937; 80048; 82962; 83735; 85027; 85347; 86900; 86901; 93005; 93656; 93657; 94640; C1732; C1733; C1766

== ENCOUNTER 2025-01-09 06:13 | Day surgery (SDC) | payer MEDICARE, SELFPAY ==
[2025-01-09 08:10] VITALS: BMI 32.7
[2025-01-09 08:30] VITALS: BMI 32.7
[2025-01-09 08:35] VITALS: BP 110/73
[2025-01-09 09:48] VITALS: BP 109/62
[2025-01-09 10:01] VITALS: BP 102/66
[2025-01-09 10:09] VITALS: BP 103/65
== END 2025-01-09 10:30 | disposition home or self-care (01) ==
LOC: GI 06:13
PROVIDERS: ATTENDING PHYSICIAN Internal Medicine Gastroenterology
DX: K86.2 Cyst of pancreas (principal); K86.9 Disease of pancreas, unspecified
CPT/HCPCS: 43237

== ENCOUNTER 2025-03-23 09:38 | Observation (INO) | payer MEDICARE, SELFPAY ==
[2025-03-23] VITALS (15 sets, daily range): BP systolic 105–170; BP diastolic 52–100; PULSE 61–64; BMI 33.2; BMI 32.8
[2025-03-23 02:15] LABS: Hematocrit 33.9 % (37.0-47.0); Hemoglobin 11.5 g/dL (12.0-16.0); Mean Corp Hgb Conc. 33.9 g/dL (33.0-37.0); Mean Corpuscular Volume 94.4 fL (81.0-99.0); Platelet Count 211 10^3/uL (130-400); Red Blood Cell Count 3.59 10^6/uL (4.20-5.40); Red Cell Dist. Width 14.5 % (11.5-14.5); White Blood Cell Count 6.6 10^3/uL (4.8-10.8)
[2025-03-23 02:40] LABS: ALT (SGPT) 15 U/L (0-35); AST (SGOT) 22 U/L (14-36); Albumin 4.2 g/dl (3.5-5.0); Alkaline Phosphatase 126 U/L (38-126); Blood Urea Nitrogen 30 mg/dl (7-17); Calcium 9.2 mg/dl (8.4-10.2); Carbon Dioxide 23 mmol/L (22-30); Chloride 112 mmol/L (98-107); Estimated Creatinine Clearance 41 ml/min; Glucose 104 mg/dl (70-99); Potassium 3.9 mmol/L (3.5-5.1); Sodium 143 mmol/L (135-145); Total Bilirubin 0.7 mg/dl (0.2-1.3); Total Protein 7.1 g/dl (6.3-8.2); eGFR 56.25
--- NOTE | 2025-03-23 05:04 | ED.GENMED ---
History of Present Illness
General
Chief Complaint: Dizziness
Source: patient
Exam Limitations: none
Time Seen by Provider: 03/23/25 04:07
Nursing documentation reviewed up to this point in time: agreed with
History of Present Illness
History of Present Illness:
pt is a 84 y/o F history of hypertrophic obstructive cardiomyopathy with a septal ablation, V. tach with an ICD/pacer 11�2024, status post ablation for atrial fibrillation in November [address] Presley who presents with episodes of severe
fatigue and 'not feeling well' over the last 3 days. Patient says she had a follow-up appointment with Dr. Presley 1 week ago where she was told that she had only had A-fib for 9 hours on 1 occasion in the past several months since her ablation and
that she could stop her amiodarone. Patient stopped it the following day. She says on on 03/19 she was feeling suddenly like she was going to pass out. This is while she was at rest. She says she did not feel right. She says the following day she
got a phone call from Dr. Presley's office stating she was back in A-fib. Patient was told to restart her amiodarone which she did. Patient has continue the Eliquis. She said intermittently over the last several days she has felt overwhelmingly
like she was going to pass out, felt like her heartbeat was irregular but it did not feel like her 'normal A-fib' but that something felt extremely off. Patient says tonight when she called 911 she was feeling some chest pressure as well. She says
she had just turned out the light to go to bed and says she became super weak and dizzy but she was at rest. She says her heart beat was irregular. Per yarn carrier she is paced.
Patient says her chest pressure is better than it was. She does not feel overwhelmingly short of breath and has not had any edema or weight gain. She takes a diuretic a couple of times a week.
She has not had any fever or chills, sickness, UTI symptoms, cough or cold
Past History
Past History
ED Past Medical History: HTN, Hypercholesterolemia, Hypothyroidism and Other (Cardiomyopathy)
ED Past Surgical History: Cardiac (ICD, ablation)
Social History
Tobacco: Former smoker (Quit 1986)
Alcohol: None
Drug: None
Personal:
Living: with family
Review of Systems
Review of Systems
Allergies reviewed?: Yes
All Other Systems: Not applicable
Phy Exam
Physical Exam
Physical Exam:
GENERAL: Alert , in no apparent distress
EYE: pupils equal and reactive
NECK: Supple
ENT: o/p clr, mmm.
CARDIAC: Regular rate and rhythm . Patient's rhythm currently is paced
LUNGS: Clear breath sounds bilaterally, no acute respiratory distress, no wheezes/rales/rhonchi
ABDOMEN: Soft, without focal tenderness, no r/g, no cvat, normal bowel sounds
NEUROLOGICAL: Alert and oriented, no focal neuro deficits
SKIN: Warm and dry, skin intact.
MUSCULOSKELETAL: No edema, well perfused. neg jos's sign
PSYCH: Normal and appropriate interaction.
Course
Orders/Labs/Results
Orders:
Orders
03/23/25 01:41
Electrocardiogram (*1) Urgent
Reason for Study: Vertigo / Dizzy
03/23/25 01:42
EKG- Treatment ONCE
03/23/25 02:07
CMP [Comprehensive Metabolic Panel] Urgent
Complete Blood Count/No Diff Urgent
Free T4 Urgent
TSH Reflex To Free T4 Urgent
Comment: ADDED
03/23/25 04:49
Orthostatic VS- Treatment ONCE
0.9% Sodium Chloride 500 ml [Nss] 500 ml IV BOLUS
03/23/25 04:52
CR Chest - 2 Views Urgent
Comment:
Reason For Exam: near syncope
03/23/25 05:03
Add On- LAB Urgent
Tests Added?: tsh free t4
03/23/25 05:11
NT-proBNP Urgent
Troponin I Urgent
03/23/25 06:00
Flush (0.9% Sodium Chloride) [Flush (Nss)] See Dose Instructions IV PER PROTOCOL
Abnormal Lab Results
03/23/25
02:07
RBC 3.59 L 10^6/uL
(4.20-5.40)
Hgb 11.5 L g/dL
(12.0-16.0)
Hct 33.9 L %
(37.0-47.0)
MCH 32.0 H pg
(27.0-31.0)
Chloride 112 H mmol/L
(98-107)
BUN 30 H mg/dl
(7-17)
Glucose 104 H mg/dl
(70-99)
TSH (Reflex) 0.39 L uIU/ml
(0.47-4.68)
03/23/25 02:07
03/23/25 02:07
Vital Signs
Initial and Last Documented VS:
Initial Vital Signs
Temp Pulse Resp BP Pulse Ox
36.5 C 74 19 170/90 100
03/23/25 01:43 03/23/25 01:43 03/23/25 01:43 03/23/25 01:43 03/23/25 01:43
Last Documented Vital Signs
Temp Pulse Resp BP Pulse Ox
36.5 C 60 11 133/62 97
03/23/25 01:43 03/23/25 06:00 03/23/25 06:00 03/23/25 06:00 03/23/25 06:00
MDM/Problems Addressed
Differential Diagnosis Includes:
Paroxysmal A-fib, near syncope, CHF, cardiomyopathy, aortic stenosis
MDM/Problems Addressed:
84-year-old female with a history of hypertrophic obstructive cardiomyopathy, status post ICD, paroxysmal A-fib on Eliquis status post ablation, on amiodarone until recently presents with episodes of feeling extremely weak like she is going to pass
out suddenly while at rest. Patient says her ICD did not fire. She feels like her heartbeat has been irregular. She was called by Dr. Presley's office saying she was back in A-fib. She has restarted her amiodarone after discontinuing it only a
couple days before this began. But she says she felt overwhelmingly weak this evening along with some chest tightness or pressure and this was very worrisome to her so she called 911.
Here she looks well, while on the monitor she looks to be paced in the 60s, stable blood pressure, clear lungs, no signs of heart failure, subtle murmur. However her Medtronic interrogation shows that she has had several days with several variable
minutes long episodes of A-fib
troponin neg
*Critical Care Note
Total Time (30-74mins, 75-104mins- exclusive of procedures): Not Applicable
ED Attending Note
-
Portions of this chart may have been created with voice recognition software.� Occasional wrong word or��sound alike� substitutions may have occurred due to the inherent limitations of voice recognition software.
Discharge Plan
Departure
Patient Disposition: Admit
Date of Disposition: 03/23/25
Time of Disposition: 05:47
Admit to: Telemetry
Presentation/result/management discussed w/ accepting MD/DO: Hospitalist
Condition: Fair
Covid-19: Not Applicable
Discharge Problem:
Near syncope, Atrial fibrillation
Prescriptions:
No Action
montelukast 10 MG tablet
10 mg PO QPM
amiodarone [Pacerone] 100 MG tablet
100 mg PO DAILY
pravastatin 40 MG tablet
40 mg PO QPM
metoprolol succinate 100 MG tablet extended release 24 hr
100 mg PO NOON
alprazolam 0.25 MG tablet
0.125 mg PO HS PRN (Reason: anxiety)
PreserVision AREDS-2 1 EACH capsule
1 ea PO BID
Arnuity Ellipta 100 MCG blister with device
1 inh IH DAILY
furosemide 40 MG tablet
40 mg PO MOTUWETH
potassium chloride [Klor-Con M20] 20 MEQ tablet,ER particles/crystals
20 meq PO MOTUWETH
acetaminophen [Tylenol 8 Hour] 650 mg Tablet Extended Release
1,300 mg PO BID
levothyroxine 75 mcg Tablet
75 mcg PO DAILY
Rx Instructions:
Takes 1/2 tab on Sundays
Eliquis 5 mg Tablet
5 mg PO BID
cetirizine [Zyrtec] 10 mg Tablet
10 mg PO DAILY
cholecalciferol (vitamin D3) [Vitamin D3] 25 mcg (1,000 unit) Tablet
2 mcg PO DAILY
Referrals:
Twila Ordonez DO [Family Provider, Family Practice]
Interventions
Interventions:
*Risk Screen - Suicide Last Done: 03/23/25 01:43
*General Assessment Last Done: 03/23/25 01:43
*Neglect/Abuse Screening Last Done: 03/23/25 01:43
*ED- Fall Risk Assessment Last Done: 03/23/25 01:43
*ED COVID-19 Vaccine History Last Done: 03/23/25 03:55
ED- Neurological Assessment Last Done: 03/23/25 04:34
ED- Cardiac Assessment Last Done: 03/23/25 04:34
ED Swallowing Screen Last Done: 03/23/25 04:34
Discharge Date and Time
Print Language: FAROESE
[2025-03-23] MEDS: NSS 500 IV (05:29)
[2025-03-23 05:45] LABS: NT-proBNP 1560 pg/ml; Troponin I < 0.012 ng/ml
[2025-03-23 06:20] LABS: TSH Reflex To Free T4 0.39 uIU/ml (0.47-4.68)
[2025-03-23 06:50] LABS: Free T4 1.73 ng/dl (0.78-2.19)
[2025-03-23 08:11] LABS: Urine Albumin 2+ (Neg - Trace); Urine Bilirubin Negative (Negative); Urine Character Clear (Clear); Urine Color Yellow; Urine Glucose Negative (Negative); Urine Ketone Negative (Negative); Urine Leukocyte 1+ (Negative); Urine Nitrite Negative (Negative); Urine Occult Blood Negative (Negative); Urine Specific Gravity 1.025 (<1.030); Urine Urobilinogen Negative (Neg - 1+)
[2025-03-23 08:34] LABS: Urine Amorphous Seen; Urine Urothelial Cell 0-2 /LPF (FEW)
[2025-03-23 08:35] LABS: Urine Hyaline Cast 0-2 /LPF (0-2); Urine Red Blood Cell 0-2 /HPF (0-2)
--- NOTE | 2025-03-23 09:05 | HPS.HSE ---
Family Physician
-
Family Physician: Twila Ordonez
Chief Complaint
-
Syncope
History of Present Illness
Patient 84 years old female with past medical history of CHF, A-fib, hyperlipidemia, hypothyroidism, among other medical problems, came into the hospital with weakness and near syncope. Patient had been on amiodarone in the past and cardiology as
outpatient discontinue and since then patient reports that she has been feeling poorly and had episodes that she felt that she is going to pass out or felt lightheaded. Her lightheadedness and generalized weakness has continued and also she has
been feeling shaky. She denies chest pain. Is not sure if she was short of breath but felt some dyspnea on exertion. She was asked to restart amiodarone as outpatient at a low dose. She denies any chest pain. She denies any fevers or chills.
She was found again in A-fib and also with some heart failure features. She was referred to hospitalist service for further evaluation.
Medical History
Past Medical History
Past Medical History: Reports Other
Additional Past Medical History:
Hypertension, hyperlipidemia, hypothyroidism, CHF, ventricular tachycardia status post AICD in the past, history of hypertrophic obstructive cardiomyopathy, history of A-fib,
Past Surgical History: Reports Other
Additional Past Surgical History:
Cardiac ablation. AICD.
Social History
Tobacco: Former Smoker
Alcohol: None
Drug: None
Family History
Family History: Not pertinent
Allergies / Home Medications
Allergies reflects when Allergies were last updated in [employer].
Home Medications with original date entered in [employer]
Allergy/Medication List:
Allergies
Allergy/AdvReac Type Severity Reaction Status Date / Time
Iodinated Contrast Media Allergy Severe Rash Verified 03/23/25 02:07
iodine Allergy Severe Rash Verified 03/23/25 02:07
latex Allergy Severe Hives Verified 03/23/25 02:07
Sulfa (Sulfonamide Allergy Severe nausea & Verified 03/23/25 02:07
Antibiotics) vomiting
Home Medications
montelukast 10 mg tablet 10 mg PO QPM Lung/breathing issues 07/17/21
alprazolam 0.25 mg tablet 0.125 mg PO HSPRN PRN anxiety 11/20/21
metoprolol succinate 100 mg tablet,extended release 24 hr 100 mg PO NOON Heart disease/condition 11/20/21
pravastatin 40 mg tablet 40 mg PO QPM High cholesterol 11/20/21
vit C 250 mg-vit E 90 mg-zinc 40 mg-copper 1 [id number] capsule (PreserVision AREDS-2) 1 ea PO BID Supplement 11/20/21
furosemide 40 mg tablet 40 mg PO MOTUWETH Fluid Retention/Swelling 10/20/22
potassium chloride 20 mEq tablet,extended release(part/cryst) (Klor-Con M) 20 meq PO MOTUWETH Supplement 10/20/22
acetaminophen 650 mg tablet,extended release (Tylenol 8 Hour) 1,300 mg PO BID Pain 12/01/23
apixaban 5 mg tablet (Eliquis) 5 mg PO BID Blood Clot Prevention/Tx 06/22/24
levothyroxine 75 mcg tablet 75 mcg PO DAILY Thyroid 06/22/24
cholecalciferol (vitamin D3) 25 mcg (1,000 unit) tablet (Vitamin D3) 25 mcg PO DAILY Supplement 12/06/24
cetirizine 10 mg tablet (Zyrtec) 10 mg PO DAILY Allergies 12/08/24
amiodarone 200 mg tablet 100 mg PO NOON Arrhythmia 03/23/25
Review of Systems
-
A 12 point ROS was completed and negative except as noted: Yes
Physical Exam
Vital Signs
Vital Signs
Temp Pulse Resp BP Pulse Ox
97.7 F 60 10 121/59 97
03/23/25 01:43 03/23/25 07:00 03/23/25 07:00 03/23/25 07:00 03/23/25 07:00
Physical exam:
General: Well Developed, Well Nourished and No Apparent Distress
HEENT: Normocephalic, Atraumatic and Moist Mucous Membranes
Respiratory: Clear to Auscultation; Negative Wheezes, Rales or Rhonchi
Cardiac: Regular Rhythm and S1/S2
GI: Soft, Nontender and Nondistended
Musculoskeletal: No Clubbing, No Cyanosis and No Edema
Neuro: Awake, Alert and Oriented, no neurological deficit
Psych: Calm
Physical Exam
General: Other
Laboratory Results
-
03/23/25 02:07
03/23/25 02:07
Laboratory Results
Total Bilirubin 0.7 mg/dl (0.2-1.3) 03/23/25 02:07
AST 22 U/L (14-36) 03/23/25 02:07
ALT 15 U/L (0-35) 03/23/25 02:07
Alkaline Phosphatase 126 U/L (38-126) 03/23/25 02:07
Troponin I < 0.012 ng/ml 03/23/25 05:11
Data Reviewed
-
Diagnostic Radiology: Image Personally Visualized and interpreted
Lab Data: Labs Reviewed by me
Impression/Plan
-
IMPRESSION:
Patient 84 years old female with multiple comorbidities presented to the hospital with syncope/near syncope. Patient with recurrence of paroxysmal A-fib. Patient had increased risk of morbidity and mortality therefore she will need to be observed
on cardiac unit in the hospital and monitor accordingly.
PLAN:
Paroxysmal atrial fibrillation:
Continue antiarrhythmics but might need to be increased per cardiology recommendations
Continue anticoagulation, Eliquis 5 mg twice a day
software engineer advisor
Beta-blockers
History of PFA with PVI and LAPW isolation back in November this year
Cardiology consult-discussed with cardiology today in person.
Acute on chronic HFpEF:
IV Lasix 40 mg x 1
Continue oral diuretic
May need IV diuresis as needed
Monitor ins and outs and daily weight
Cardio on board
Plan to update echocardiogram
History of hypertrophic obstructive cardiomyopathy:
History of septal alcohol ablation in the past
Manage of heart failure as above
VT:
Medtronic AICD in place
Interrogation per cardiology
Hypothyroidism:
Continue thyroid replacement
TSH slightly low but free T4 normal-will reevaluate
DVT prophylaxis:
Eliquis
CODE STATUS:
Full code
Time spent 75 minutes
--- NOTE | 2025-03-23 10:50 | CON.CAR ---
Addendum entered and electronically signed by Lucian Riley MD 03/23/25 12:33:
I saw and examined the patient.
The Music Minister's note was reviewed and I agree with the note.
Comment:
GEN: No distress, awake, Ox3
HEENT: supple, anicteric, mmm
LUNGS: CTA, no wheezes/rales
CV: Reg, S1/S2, 10/23 syst LSB, no gallop
ABD: soft, BS+, NT/ND
EXT: No edema
NEURO: Gross non-focal
SKIN: No rash
PLan:
84-year-old female with past medical history of HOCM status post septal alcohol ablation, ICD, paroxysmal atrial fibrillation with PVI in 11/2024. 1 week ago her amiodarone was stopped because she was doing so well with no A-fib on her ICD. 3 days
after her amiodarone was stopped starting having severe fatigue, tiredness and felt incredibly weak. She denied any chest pains but did feel short of breath. Her energy had declined significantly. By device check she was found to be back in
atrial fibrillation. Her ventricular rates were modestly elevated. Ultimately she presented to the emergency room for further evaluation but has converted back into sinus rhythm.
She also presents with some acute on chronic heart failure with preserved ejection fraction
She maintains AV paced rhythm. Will increase amiodarone to 200 mg p.o. twice daily for 7 days then 200 mg daily. Start Lasix 40 mg IV daily.
Continue Toprol 100 mg daily. Check echocardiogram.
TSH is suppressed but free T4 is normal. Will defer to medical team.
Cardiac troponins are normal.
Will check into cost of SLG 2 inhibitor
Original Note:
Consultation
Consultation Request
Date/Time Consultation Performed: 03/23/25
Requesting Provider: Dr. Eid
Performing Provider: Theodora Lopez PA-C for Dr. Riley
Reason for Consultation: afib
Medical History
-
Chief Complaint: dizziness, weakness
History of Present Illness:
Patient is an 84-year-old female with past medical history of HOCM status post alcohol ablation approximately 7 years ago in [place], history of Medtronic ICD. More recently she had persistent A-fib, and underwent PFA with PVI and LA PW
isolation 12/08/2024. Since her PVI she was felt to have 9% burden of A-fib on 100 mg daily of amiodarone and at post procedure office visit 03/16/2025, her amiodarone was stopped. She reports since then she has been feeling poorly. She reports
this past Wednesday she was watching her 3-year-old great granddaughter and felt very fatigued while they were playing to the point that she closed her eyes on the couch. She then reports on Wednesday morning she was called and told that she was back
in A-fib by our office. She restarted her amiodarone at 100 mg daily. She then was driving to a lunch date and had profound lightheadedness in the car. She states she was able to make it to the restaurant and felt better after eating. Then last
night she had an episode where she felt profoundly lightheaded and weak. She also was shaky. Due to this she came to the ER for further evaluation. Currently in av paced rhythm.
PMH:
Persistent atrial fibrillation
s/p PFA with PVI and LAPW isolation 12/08/2024
Chronic OAC with eliquis
HOCM s/p septal alcohol ablation ~7 years ago, [place] with history of Medtronic ICD
Chronic HFpEF
Hypothyroidism
HLD
Past Medical History
Past Medical History: Other (in HPI)
Social History
Tobacco: Former Smoker
Alcohol: None
Living: Alone
Employment: Retired
Family History
Family History: Diabetes, Hypertension and Other (PPM)
Allergies / Home Medications
Allergy/AdvReac Type Severity Reaction Status Date / Time
Iodinated Contrast Media Allergy Severe Rash Verified 03/23/25 02:07
iodine Allergy Severe Rash Verified 03/23/25 02:07
latex Allergy Severe Hives Verified 03/23/25 02:07
Sulfa (Sulfonamide Allergy Severe nausea & Verified 03/23/25 02:07
Antibiotics) vomiting
�Medication �Instructions �Recorded �Confirmed �Type
montelukast 10 mg tablet 10 mg PO QPM Lung/breathing issues 07/17/21 03/23/25 History
alprazolam 0.25 mg tablet 0.125 mg PO HSPRN PRN anxiety 11/20/21 03/23/25 History
metoprolol succinate 100 mg 100 mg PO NOON Heart 11/20/21 03/23/25 History
tablet,extended release 24 hr disease/condition
pravastatin 40 mg tablet 40 mg PO QPM High cholesterol 11/20/21 03/23/25 History
vit C 250 mg-vit E 90 mg-zinc 40 1 ea PO BID Supplement 11/20/21 03/23/25 History
mg-copper 1 [id number]
capsule (PreserVision AREDS-2)
furosemide 40 mg tablet 40 mg PO MOTUWETH Fluid 10/20/22 03/23/25 History
Retention/Swelling
potassium chloride 20 mEq 20 meq PO MOTUWETH Supplement 10/20/22 03/23/25 History
tablet,extended
release(part/cryst) (Klor-Con M)
acetaminophen 650 mg 1,300 mg PO BID Pain 12/01/23 03/23/25 History
tablet,extended release (Tylenol 8
Hour)
apixaban 5 mg tablet (Eliquis) 5 mg PO BID Blood Clot 06/22/24 03/23/25 History
Prevention/Tx
levothyroxine 75 mcg tablet 75 mcg PO DAILY Thyroid 06/22/24 03/23/25 History
cholecalciferol (vitamin D3) 25 25 mcg PO DAILY Supplement 12/06/24 03/23/25 History
mcg (1,000 unit) tablet (Vitamin
D3)
cetirizine 10 mg tablet (Zyrtec) 10 mg PO DAILY Allergies 12/08/24 03/23/25 History
amiodarone 200 mg tablet 100 mg PO NOON Arrhythmia 03/23/25 03/23/25 History
Review of Systems
-
History Source: Patient and Family
All other systems: Negative unless noted
Physical Exam
Vital Signs
Temp Pulse Resp BP Pulse Ox
97.7 F 60 10 121/59 97
03/23/25 01:43 03/23/25 07:00 03/23/25 07:00 03/23/25 07:00 03/23/25 07:00
Lab Results
03/23/25 02:07
03/23/25 02:07
Troponin I < 0.012 ng/ml 03/23/25 05:11
[id number] Pept 1560 pg/ml 03/23/25 05:11
Physical Exam
General: No Apparent Distress and Comfortable
HEENT: Normocephalic, Anicteric and Moist Mucous Membranes
Respiratory: Crackles and Non Labored Respirations
Cardiac: S1/S2 and Regular Rhythm
GI: Soft, Non Tender, Non Distended and Normal Bowel Sounds
Musculoskeletal: No Clubbing, No Cyanosis and No Edema
Skin: Warm and Dry
Neuro: AO x 3
Impression / Plan
-
Primary Crushing Foreman: Dr. Presley
Assessment:
Paroxysmal atrial fibrillation
Acute on Chronic HFpEF
Atrial fibrillation s/p PFA with PVI and LAPW isolation 12/08/2024
Chronic OAC with eliquis
HOCM s/p alcohol septal ablation ~7 years ago, [place] with history of Medtronic ICD
Hypothyroidism
HLD
Echo 12/01/2021: Small LV, HOCM with EF 70 to 75% with near cavity obliteration, ventricular septum 1.8 cm, resting LVOT gradient 29 mmHg increasing to 34 with Valsalva, focal thickening of septum immediately below the aortic valve consistent with
alcohol septal ablation, MAC, mild MR, aortic sclerosis, normal right heart with ICD wires, mild TR and borderline pulmonary hypertension, 32 mmHg systolic
Plan:
- Patient presents with symptomatic paroxysmal atrial fibrillation in setting of recent pulsed field ablation 12/08/2024.
- She reports her symptoms are different than what she had experienced with A-fib preprocedure
- She had resumed Amio which was recently stopped 03/16 office visit. Will plan to increase dose for now to 200 mg twice daily for 1 week then can decrease back to 200 daily. She had been taking 100 mg daily as an outpatient. Follow QTc by EKG
- Continue Eliquis and outpatient Toprol
- proBNP 1560. Chest x-ray with evidence of pulmonary edema. Will give 40 mg IV Lasix x 1 today. As outpatient she takes 40 mg of p.o. Lasix Wednesday and Wednesday
- Check echo, was scheduled as an outpatient for echo on 04/13 which I have canceled as will be completed inpatient. Last from 2021 as above
- Could consider addition of SGLT2 inhibitor
- TSH low normal, but with compensated free T4. Defer adjustment in levothyroxine to primary service
- Discussed with hospitalist. Discussed with patient and daughter at bedside
Data Reviewed
-
EKG: Tracing Personally Visualized and interpreted
Radiology: Report Reviewed by me
Medical Tests (Nuc Med, Echo etc): Report Reviewed by me
Labs: Labs Reviewed by me
Old Records: Reviewed
--- NOTE | 2025-03-23 10:56 | CM ---
Met with patient and her daughter at bedside in the ED
[facility] form explained; form signed @ [id number]
Pharmacy verified: [facility] @ [address], [place]
Patient lives alone; one floor apartment; bath has stall shower, raised toilet
PLOF: patient reported she is independent with ambulation and ADLs; drives
NO SNF or Home Health utilization history
Daughter will transport home
Plan: Discharge to home when medically stable; no needs anticipated
[2025-03-23] MEDS: ELIQUIS 5 MG PO ×2 (10:59→19:52)
[2025-03-23] MEDS: TOPROL XL 100 MG PO (12:39)
[2025-03-23] MEDS: PACERONE 100 MG PO (12:39)
--- NOTE | 2025-03-23 12:50 | PTCARENOTE ---
Patient admitted to from ED, ambulated from stretcher to bed with x1 assist. AAOx3, reporting slight lightheadedness but says symptoms have improved from arrival to hospital. Assisted patient with ordering lunch. Oriented to room and plan of care.
Call tapia within reach.
[2025-03-23] MEDS: TYLENOL 650 MG PO ×2 (13:11→17:27)
[2025-03-23] MEDS: SYNTHROID 75 MCG PO (14:17)
[2025-03-23] MEDS: SINGULAIR 10 MG PO (17:26)
[2025-03-23] MEDS: PRAVACHOL 40 MG PO (17:26)
[2025-03-24] MEDS: TYLENOL 650 MG PO ×3 (00:01→11:33)
[2025-03-24] MEDS: TUMS CHEWABLE TABLET 400 MG PO (00:38)
[2025-03-24 03:15] VITALS: BP 134/74
[2025-03-24] MEDS: SYNTHROID 75 MCG PO (05:17)
[2025-03-24 05:41] VITALS: BMI 33.1
[2025-03-24 07:25] VITALS: BP 140/70
[2025-03-24 07:40] LABS: Hematocrit 31.8 % (37.0-47.0); Hemoglobin 10.3 g/dL (12.0-16.0); Mean Corp Hgb Conc. 32.4 g/dL (33.0-37.0); Mean Corpuscular Hgb 31.4 pg (27.0-31.0); Mean Platelet Volume 10.2 fL (7.4-10.4); Platelet Count 185 10^3/uL (130-400); Red Blood Cell Count 3.28 10^6/uL (4.20-5.40); Red Cell Dist. Width 14.6 % (11.5-14.5); White Blood Cell Count 7.5 10^3/uL (4.8-10.8)
[2025-03-24] MEDS: ZYRTEC 10 MG PO (08:07)
[2025-03-24] MEDS: OCUVITE SOFTGEL 1 CAP PO (08:07)
[2025-03-24] MEDS: ELIQUIS 5 MG PO (08:07)
[2025-03-24] MEDS: VITAMIN D3 (cholecalciferol) 25 MCG PO (08:07)
[2025-03-24 08:10] LABS: Blood Urea Nitrogen 22 mg/dl (7-17); Calcium 9.3 mg/dl (8.4-10.2); Carbon Dioxide 22 mmol/L (22-30); Chloride 113 mmol/L (98-107); Estimated Creatinine Clearance 46 ml/min; Glucose 81 mg/dl (70-99); Sodium 141 mmol/L (135-145); eGFR > 60.00
--- NOTE | 2025-03-24 09:23 | W.PN.HOSP.TC ---
Today's Communication/Plan
-
Discharge planning today
Assessment / Plan
Assessment / Plan
Physical exam:
General: Well Developed, Well Nourished and No Apparent Distress
HEENT: Normocephalic, Atraumatic and Moist Mucous Membranes
Respiratory: Clear to Auscultation; Negative Wheezes, Rales or Rhonchi
Cardiac: Regular Rhythm and S1/S2
GI: Soft, Nontender and Nondistended
Musculoskeletal: No Clubbing, No Cyanosis and No Edema
Neuro: Awake, Alert and Oriented, no neurological deficit
Psych: Calm
A/P:
Paroxysmal atrial fibrillation:
Continue antiarrhythmics-per cardiology amiodarone 200 mg twice a day for 1 week and then once a day
Continue anticoagulation, Eliquis 5 mg twice a day
cardiac monitor technician
Beta-blockers
History of PFA with PVI and LAPW isolation back in November this year
Cardiology consult appreciated
Acute on chronic HFpEF:
IV Lasix 40 mg x 1--> per cardiology 40 mg once a day for 1 week and then as before
Continue oral diuretic
Monitor ins and outs and daily weight
Cardio on board
Reviewed echocardiogram
Cardiology cleared her for discharge today
History of hypertrophic obstructive cardiomyopathy:
History of septal alcohol ablation in the past
Manage of heart failure as above
VT:
Medtronic AICD in place
Interrogation per cardiology
Hypothyroidism:
Continue thyroid replacement
TSH slightly low but free T4 normal-will reevaluate
DVT prophylaxis:
Eliquis
CODE STATUS:
Full code
Anticipated Discharge: Today
Subjective/Interval History
-
Date of Service: March 24, 2025
Patient feels still somewhat short of breath but on room air and no chest pain or syncope. Will give IV Lasix today and if she feels better she can probably go home later today.
Objective Data
-
Labs:
Laboratory Results
03/24/25
06:26
WBC 7.5
Hgb 10.3 L
Hct 31.8 L
Plt Count 185
Sodium 141
Potassium 4.0
Chloride 113 H
Carbon Dioxide 22
BUN 22 H
Creatinine 0.9
Glucose 81
Calcium 9.3
Vital Signs:
Vital Signs
Temp Pulse Resp BP Pulse Ox
98.0 F 61 16 140/70 96
03/24/25 07:25 03/24/25 07:25 03/24/25 07:25 03/24/25 07:25 03/24/25 08:00
I&O
03/23/25 03/24/25 03/25/25
06:59 06:59 06:59
Intake Total 500 / 500 960 / 960
Balance 500 / 500 960 / 960
[2025-03-24 11:10] VITALS: BP 128/65
--- NOTE | 2025-03-24 11:25 | W.PN.CARDCBS ---
Addendum entered and electronically signed by Lucian Riley MD 03/24/25 12:29:
I saw and examined the patient.
The Clicker Operator's note was reviewed and I agree with the note.
Comment:
GEN: No distress, awake, Ox3
HEENT: supple, anicteric, mmm
LUNGS: CTA, no wheezes/rales
CV: Reg, S1/S2, 10/23 syst LSB, no gallop
ABD: soft, BS+, NT/ND
EXT: No edema
NEURO: Gross non-focal
SKIN: No rash
PLan:
Remains AV paced. Continue amiodarone 2 mg twice daily for 1 week then decrease to 20 mg daily starting on April 01, 2025.
Would give Lasix 40 mg IV today now. Would discharge home on Lasix 40 mg daily for 1 week or until back to baseline weight of 160 269 pounds.
Continue metoprolol and Eliquis.
If feels well this afternoon would be stable for discharge from cardiology standpoint.
Troponin and creatinine are normal.
Original Note:
Today's Communication / Plan
-
Give IV Lasix 40 mg today and continue to follow with diuresis
Would discharge home on 40 mg daily until patient's weight returns to baseline of 168 to 169 pounds on home scale
Increase amiodarone to 200 mg twice a day x 1 week then resume 200 mg dosing on 04/01/2025
Check EKG
Impression / Plan
-
Primary Rate Clerk Passenger: Dr. Presley
Assessment:
Presented 03/23/2025 with fatigue and recurrent atrial fibrillation
Paroxysmal atrial fibrillation
Acute on Chronic HFpEF, proBNP 1560
Atrial fibrillation s/p PFA with PVI and LAPW isolation 12/08/2024
Chronic OAC with eliquis
HOCM s/p alcohol septal ablation ~7 years ago, [place] with history of Medtronic ICD
Hypothyroidism
HLD
Echo 12/01/2021: Small LV, HOCM with EF 70 to 75% with near cavity obliteration, ventricular septum 1.8 cm, resting LVOT gradient 29 mmHg increasing to 34 with Valsalva, focal thickening of septum immediately below the aortic valve consistent with
alcohol septal ablation, MAC, mild MR, aortic sclerosis, normal right heart with ICD wires, mild TR and borderline pulmonary hypertension, 32 mmHg systolic
Echo 03/23/2025: EF 60 to 65%. Moderate to severe concentric LVH. Stage II DD with increased filling pressures. Mildly dilated right atrium. Mild MR, AI. Moderate TR with PAP 64 mmHg. No significant LV OT gradient. No significant change
compared to echo in November 2024.
Plan:
- Patient presented 03/23/2025 with symptomatic paroxysmal atrial fibrillation in setting of recent pulsed field ablation 12/08/2024 and recent discontinuation of amiodarone in outpatient setting.
- She reports her symptoms are different than what she had experienced with A-fib preprocedure
- Increased dose of Amiodarone 200 mg twice daily for 1 week then can decrease back to 200 daily starting 04/01/2025.
- Per review of telemetry patient now appears to be back in sinus rhythm with AV paced rhythm as of 03/24/2025 in AM
- Check EKG now
- Continue Eliquis and outpatient Toprol
- proBNP 1560. Chest x-ray with evidence of pulmonary edema. Weight up a few pounds overnight will give 40 mg IV Lasix today. Would increase outpatient dose of Lasix to 40 mg daily until patient returns to baseline weight which she reports is
168-169 on her home scale. Previously she was taking 40 mg of p.o. Lasix Wednesday and Wednesday
- Echo stable as noted above
- Could consider addition of SGLT2 inhibitor which can be discussed as outpatient. Likely heart failure exacerbated by recurrent atrial fibrillation
- TSH low normal, but with compensated free T4. Defer adjustment in levothyroxine to primary service
- Discussed with hospitalist. Discussed with patient and daughter at bedside
History of Present Illness:
Patient is an 84-year-old female with past medical history of HOCM status post alcohol ablation approximately 7 years ago in [place], history of Medtronic ICD. More recently she had persistent A-fib, and underwent PFA with PVI and LA PW
isolation 12/08/2024. Since her PVI she was felt to have 9% burden of A-fib on 100 mg daily of amiodarone and at post procedure office visit 03/16/2025, her amiodarone was stopped. She reports since then she has been feeling poorly. She reports
this past Wednesday she was watching her 3-year-old great granddaughter and felt very fatigued while they were playing to the point that she closed her eyes on the couch. She then reports on Wednesday she was called and told that she was back
in A-fib by our office. She restarted her amiodarone at 100 mg daily. She then was driving to a lunch date and had profound lightheadedness in the car. She states she was able to make it to the restaurant and felt better after eating. Then last
night she had an episode where she felt profoundly lightheaded and weak. She also was shaky. Due to this she came to the ER for further evaluation. Currently in av paced rhythm.
Progress Note - Rate Clerk Passenger
Subjective
Date of Service: March 24, 2025
Patient seen and examined. Patient reports she is still feels not back to baseline with some mild swelling and some shortness of breath.
Objective
Labs:
03/24/25 06:26
03/24/25 06:
Labs
Hgb 10.3 g/dL (12.0-16.0) L 03/24/25 06:
Hct 31.8 % (37.0-47.0) L 03/24/25 06:26
Plt Count 185 10^3/uL (130-400) 03/24/25 06:26
Sodium 141 mmol/L (135-145) 03/24/25 06:
Potassium 4.0 mmol/L (3.5-5.1) 03/24/25 06:26
BUN 22 mg/dl (7-17) H 03/24/25 06:26
Creatinine 0.9 mg/dL (0.6-1.0) 03/24/25 06:26
Glucose 81 mg/dl (70-99) 03/24/25 06:26
Troponins
03/23/25
05:11
Troponin I < 0.012
Vital Signs and I&O:
Vital Signs
Temp Pulse Resp BP Pulse Ox
97.9 F 65 18 128/65 98
03/24/25 11:10 03/24/25 11:10 03/24/25 11:10 03/24/25 11:10 03/24/25 11:10
Vital Signs
Temp Pulse Resp BP Pulse Ox
97.9 F 65 18 128/65 98
03/24/25 11:10 03/24/25 11:10 03/24/25 11:10 03/24/25 11:10 03/24/25 11:10
Intake & Output
03/22/25 03/23/25 03/24/25 03/25/25
06:59 06:59 06:59 06:59
Intake Total 500 / 500 960 / 960
Balance 500 / 500 960 / 960
Physical Exam
Physical Exam
GEN: No distress, awake, Ox3
HEENT: supple, anicteric, mmm
LUNGS: CTA bilaterally, no wheezes/rales
CV: Reg, S1/S2, 1/6 syst murmur, no rub or gallop
ABD: soft, BS+, NT/ND
EXT: Trace edema,, no clubbing or cyanosis
NEURO: Gross non-focal
SKIN: No rash, warm, dry, pink
[2025-03-24] MEDS: TOPROL XL 100 MG PO (11:33)
[2025-03-24] MEDS: LASIX 40 MG IV (11:33)
[2025-03-24] MEDS: PACERONE 100 MG PO ×2 (11:33→12:04)
--- NOTE | 2025-03-24 13:53 | W.DCSUMMARY ---
Discharge Summary
Discharge Data
Date of Admission: 03/23/25
Date of Discharge: 03/24/25
-
Pending Results: No
Hospital Course
Patient 84 years old female with history of HOCM status post septal ablation, ICD, A-fib, came into the hospital with recurrent A-fib and mild heart failure exacerbation. Cardiology consulted. She had updated echocardiogram and compared to
previous echo there is little significant change. Cardiology increase her amiodarone and gave IV Lasix and switched to oral Lasix for 1 week and then back to her home doses. Patient feels symptomatically much improved. Cardiology has cleared her
for discharge. She will be discharged in stable condition today.
Discharge Plan
-
Patient Disposition: Home (Routine Discharge)
Discharge Diagnosis/Procedures: Paroxysmal atrial fibrillation. Acute on chronic diastolic congestive heart failure.
Diet: Low Sodium and Restrict fluids to 48 oz
Activity: As tolerated
Blood Work: Please PCP to order CBC, BMP within 1 week
Specialty Instructions: Weigh Daily- Call MD for wt gain/loss 3 lbs overnight/5 lbs in 1 week
Referrals:
Twila Ordonez, [Family Provider, Family Practice] - in less than 1 week
Usha Caro CRNP [Specified Professional Personl, Cardiology] - 04/10/25 8:00 am
Referral Note: You have cardiology follow-up with Usha Caro nurse practitioner on April 10 at 8 AM in [place] [address] in the [facility]. If you are able to make this appointment please call [phone] to reschedule
Additional Discharge Medication Instructions: - Take amiodarone 200 mg twice a day for 1 week and then decrease to 200 mg once a day thereafter. 2 separate prescriptions have been sent to your pharmacy, one prescription is for the twice a day dose
and the other prescription is for the once a day.
- Start taking Lasix 40 mg once a day for 1 week and then resume as before.
Prescriptions:
New
amiodarone 200 mg Tablet
200 mg PO BID 7 Days Qty: 14 0RF
furosemide [Lasix] 40 mg tablet
40 mg PO DAILY Qty: 7 0RF
amiodarone 200 mg tablet
200 mg PO DAILY Qty: 30 0RF
Rx Instructions:
Start treatment after finishing amiodarone twice a day. Planning to start on April 01, 2025.
Continued
montelukast 10 MG tablet
10 mg PO QPM
pravastatin 40 MG tablet
40 mg PO QPM
metoprolol succinate 100 MG tablet extended release 24 hr
100 mg PO NOON
alprazolam 0.25 MG tablet
0.125 mg PO HSPRN PRN (Reason: anxiety)
PreserVision AREDS-2 1 EACH capsule
1 ea PO BID
potassium chloride [Klor-Con M20] 20 MEQ tablet,ER particles/crystals
20 meq PO MOTUWETH
acetaminophen [Tylenol 8 Hour] 650 mg Tablet Extended Release
1,300 mg PO BID
levothyroxine 75 mcg Tablet
75 mcg PO DAILY
Rx Instructions:
Takes 1/2 tab on Sundays
Eliquis 5 mg Tablet
5 mg PO BID
cetirizine [Zyrtec] 10 mg Tablet
10 mg PO DAILY
cholecalciferol (vitamin D3) [Vitamin D3] 25 mcg (1,000 unit) Tablet
25 mcg PO DAILY
Arnuity Ellipta 100 mcg/actuation Blister With Device
1 inh INHALATION DAILY
Held
furosemide 40 MG tablet
40 mg PO MOTUWETH
Hold Instructions: Resume on 04/02/25.
Discontinued
amiodarone 200 mg Tablet
100 mg PO NOON
Patient Comments:
PATIENT FILLS 200MG BECAUSE INSURANCE WILL NOT COVERAGE 100MG AND CUTS THE 200MG IN HALF
Discharge Orders:
Discharge Patient (As Directed); Ordered 03/24/25
Ordered By: Jesus Eid
Discharge Date and Time
Discharge Date/Time: 03/24/25 18:16
Print Language: AMHARIC
--- NOTE | 2025-03-24 14:00 | CM ---
CM reviewed chart, patient seen bedside, for discharge today. Patient inquiring about observation versus inpatient status, discussed patient remains observation status. Patient reports her daughter will provide transportation home, denies any needs
from CM. Patient reports as long as she feels up to it, she will discharge home, then reports she is really going to try. CM will continue to follow for all discharge planning needs.
Plan; home no needs, daughter to transport
[2025-03-24 15:10] VITALS: BP 121/62
== END 2025-03-24 18:16 | disposition home or self-care (01) ==
LOC: 4 WEST ACU 09:38
PROVIDERS: Physician Assistant; ADMITTING PHYSICIAN Hospitalist; CONSULT PHYSICIAN Internal Medicine Cardiovascular Disease; EMERGENCY PHYSICIAN Student in an Organized Health Care Education/Training Program; FAMILY PHYSICIAN Family Medicine
DX: I48.0 Paroxysmal atrial fibrillation (principal); I11.0 Hypertensive heart disease with heart failure; I50.33 Acute on chronic diastolic (congestive) heart failure; R42 Dizziness and giddiness; I42.1 Obstructive hypertrophic cardiomyopathy; R53.83 Other fatigue; R53.1 Weakness; E78.00 Pure hypercholesterolemia, unspecified; J98.11 Atelectasis; I08.3 Combined rheumatic disorders of mitral, aortic and tricuspid valves; R06.09 Other forms of dyspnea; E03.9 Hypothyroidism, unspecified; R55 Syncope and collapse; Z95.810 Presence of automatic (implantable) cardiac defibrillator; Z87.891 Personal history of nicotine dependence; Z79.01 Long term (current) use of anticoagulants; Z79.890 Hormone replacement therapy; Z79.51 Long term (current) use of inhaled steroids; Z79.899 Other long term (current) drug therapy; Z83.3 Family history of diabetes mellitus; Z82.49 Family history of ischemic heart disease and other diseases of the circulatory system; Z88.2 Allergy status to sulfonamides; Z91.041 Radiographic dye allergy status; Z91.040 Latex allergy status; Z60.2 Problems related to living alone
CPT/HCPCS: 71046; 80048; 80053; 81003; 81015; 83880; 84439; 84443; 84484; 85027; 87086; 93005; 93289; 93306; 96360; 99285; G0378

== ENCOUNTER → 2025-03-30 16:19 | Outpatient (REF) | payer MEDICARE, SELFPAY | LOC: RAD 16:19 | PROVIDERS: ATTENDING PHYSICIAN Family Medicine | DX: R05.1 Acute cough (principal); R09.89 Other specified symptoms and signs involving the circulatory and respiratory systems; I50.43 Acute on chronic combined systolic (congestive) and diastolic (congestive) heart failure; R50.9 Fever, unspecified | CPT/HCPCS: 71046 ==

== ENCOUNTER 2025-04-13 07:12 | Day surgery (SDC) | payer MEDICARE, SELFPAY ==
[2025-04-13 08:18] VITALS: BMI 32.7
--- NOTE | 2025-04-13 18:35 | ITS.CL.CARDI ---
Engineering Systems Analyst - Cardioversion
Cardioversion
Procedure Report:
Date of Procedure: 04/13/25
Procedure: Cardioversion
Indication: Symptomatic atrial flutter or atrial tachycardia.
Performing Physician: Miracle Leyva DO [facility]
Medtronic cobalt XT DR MRI ICD with limited interrogation at time of procedure. Rhythm confirmed: Atrial flutter versus atrial tachycardia
Anticoagulation: Eliquis.
Antiarrhythmic therapy: Amiodarone 200 mg once daily
Technique: The patient was brought to the holding area. Signed informed consent was obtained. A time out was called and performed. The patient was anesthetized by the anesthesia service. Anticoagulation status was reviewed and appropriate. R2 pads
were placed anteriorly and posteriorly; For the last attempt, new pads were repositioned in the 'EP' orientation.. Synchronized biphasic shocks at 200J, 300J and 360J failed to restore sinus rhythm. There were no complications. Patient was seen
following procedure by Dr. Ray Presley with plan for redo ablation scheduled April 19. Daughter was updated.
Conclusion: Unsuccessful cardioversion attempt without complications
Recommendation: Routine post cardioversion care. Continue penitentiary anticoagulation.
== END 2025-04-13 10:14 | disposition home or self-care (01) ==
LOC: CATH 07:12
PROVIDERS: ATTENDING PHYSICIAN Internal Medicine Cardiovascular Disease; FAMILY PHYSICIAN Family Medicine; OTHER PHYSICIAN Internal Medicine Cardiovascular Disease
DX: I48.92 Unspecified atrial flutter (principal); I47.19 Other supraventricular tachycardia; I48.91 Unspecified atrial fibrillation; I10 Essential (primary) hypertension; E78.5 Hyperlipidemia, unspecified; E03.9 Hypothyroidism, unspecified; Z95.810 Presence of automatic (implantable) cardiac defibrillator; Z87.891 Personal history of nicotine dependence; Z79.01 Long term (current) use of anticoagulants
CPT/HCPCS: 92960; 93005

== ENCOUNTER 2025-04-19 08:02 | Day surgery (SDC) | payer MEDICARE, SELFPAY ==
[2025-04-19] VITALS (21 sets, daily range): BP systolic 87–126; BP diastolic 47–89; BMI 33.4
[2025-04-19 08:46] LABS: INR 1.49; PT 18.5 Sec (11.4-14.6)
[2025-04-19 08:53] LABS: Magnesium 2.4 mg/dl (1.6-2.3)
[2025-04-19 11:37] LABS: ACT-LR - POC 355 Seconds (116-155)
[2025-04-19 12:21] LABS: ACT-LR - POC 337 Seconds (116-155)
[2025-04-19 12:34] LABS: ACT-LR - POC 332 Seconds (116-155)
[2025-04-19 12:59] LABS: ACT-LR - POC 382 Seconds (116-155)
--- NOTE | 2025-04-19 13:11 | ITS.CL.ABL ---
[employer] - Ablation
Ablation
Procedure Report:
ELECTROPHYSIOLOGY ABLATION STUDY
DATE:: April 19, 2025�����������������������������REFERRING: Dr. Jillian Webster
INDICATION: Persistent supraventricular tachycardia in the form of atypical atrial tachycardia
HISTORY: See H and P.��As above
ANTIARRHYTHMIC DRUG: Amiodarone
PRE-PROCEDURE KWASI: No thrombus on intracardiac ultrasound
PRESENTING RHYTHM: Atypical atrial tachycardia
'TIME-OUT':��called and confirmed.
SEDATION/ANESTHESIA:��provided via the anesthesia department using general anesthesia (LMA).
INTRAVENOUS/ARTERIAL ACCESS:
Right femoral venous -8Fr
Left femoral venous - 8 Fr, 6 Fr
Ultrasound guidance for bilateral femoral vein access was utilized by me to obtain access with demonstration of normal anatomy
CHADS-VASC Score:
HAS-Bled Score
PROCEDURE:
1.� Prior to procedure the ICD therapies were turned off and then turned back on at prior programmed settings with a baseline DDDR 60 to 130 bpm. �A decapolar CS catheter was placed within the CS for mapping and pacing.��This was also used as the
reference catheter for the 3-D map. Initial tachycardia was 280 to 290 ms but variable cycle length and entrainment from the right atrium demonstrated PPI greater than 200 ms greater than tachycardia cycle length. Transseptal puncture was then
performed as below and tachycardia was mapped. The pulmonary veins and the left atrial posterior wall roof and floor were isolated at baseline from prior procedure with the Madeleine pulse catheter. There appeared to be Micra reentry from the lateral
mitral isthmus as the roof of the left atrium was approximately 80 ms along and we can get within 20 to 30 ms at the mitral isthmus. We did perform lesions at the dome of the left atrium extending the area of posterior wall isolation and then with
the line from the left inferior pulmonary vein down to the mitral isthmus utilizing PFA and radiofrequency lesions tachycardia terminated. The patient was then having multiple salvos of short variable cycle length tachycardias ranging from 230 ms
to 350 ms. Attempted entrainment from the right atrium demonstrated PPI close to tachycardia cycle length and after the mitral isthmus was completed and the veins and posterior wall were reconfirmed with entrance block we went over to the right
atrium and performed a CTI flutter ablation with bidirectional block and lateral RA keron lesions. No further short cycle length tachycardias were noted and only a slow organized tachyarrhythmia at 380 to 390 ms with the right atrium now out of
the circuit. We reperformed transseptal puncture went back over to the left atrium demonstrating PPI close to tachycardia cycle length and further lesions in the middle of the mitral isthmus terminated tachycardia without further tachyarrhythmias
noted. We then confirmed bidirectional block across the CTI isthmus and the mitral isthmus and the patient was noninducible for other tachyarrhythmias.
2. The intracardiac ultrasound catheter was positioned in the RA to identify the FO for targeting of transseptal puncture, assist��in identification of the pulmonary vein ostia, monitoring pre and post ablation pulmonary vein flow velocities,
monitoring for 'bubble' formation during RF application as a sign of thermal injury,��and to monitor for pericardial effusion during mapping and ablation procedure.���Left atrial size, LV ejection fraction, and pulmonary vein flows were monitored
pre and post ablation procedure. The other valves were inspected and found to be free of significant regurgitation or stenosis.
3.��Half of the calculated heparin bolus was administered prior to the first transeptal puncture.��Transseptal puncture was performed to diagnose RA and LA pressure so that safetey of LA mapping and ablation could be further assessed, and to access
the left atrium and pulmonary veins for mapping and ablation.��This entailed advancing an 10 Romanian steerable sheath with dilator into the superior vena cava and withdrawing both (monitoring intracardiac ultrasound, fluoroscopy and tip pressure)
with the tip oriented toward the atrial septum.��The fossa ovalis was engaged (indicated by sudden displacement of the sheath tip as well as tenting of the fossa seen on intracardiac ultrasound).��Left atrial access required a pass with the
Brockenbrough needle extended.��Left atrial catheter position was confirmed by pressure monitoring (RA mean pressure 8 mm Hg and LA mean presure 24 mm Hg), LA saturation (99%),��as well as fluoroscopy.��The sheath was advanced over the dilator and
positioned in the left atrium.��This procedure was repeated for the Agilis sheath.��The remainder of the calculated heparin bolus was administered and heparin was
infused to maintain ACT at 300 -350 seconds throughout the case.
4.��RA pacing was performed via the proximal decapolar poles and LA pacing was performed via the distal decapolr poles.
5. A quadrapolar catheter was first positioned at the His position for His Bundle recording which was tagged via the 3-D Navex sytem, and then passed to the RVA for RV pacing and recording.
6. The 9 mm lattice was placed in each of the LIPV, LSPV, RSPV and the RIPV.��
7.��Next, a 3-D map was created using Navex.���A 3-D reconstructed CT image was compared to the 3-D Navex map to assist in anatomic interpretation, mapping and ablation.��The CT image and the NavX image were fused.
8. The pulmonary veins and the posterior wall right-sided baseline. 2 separate mechanisms of atrial flutter were ablated with mitral isthmus and CTI. Extrapulmonary vein substrate at the keron terminalis and roof was also ablated.
Bidirectional block across the CTI with to 30 ms conduction time across the isthmus and bidirectional block across the mitral isthmus at 290 ms.
Radiofrequency energy was delivered at the mitral isthmus or near the AV ring and PFA from mid isthmus back to the back of each line.
9. An RF line was also placed at the IVC-TVA isthmus to interupt the potential typical atrial flutter circuit.��At the end of RF at this site, pacing from the lateral side of the line and the medial side of the line was performed to evaluate for
bidirectinal block.
TOTAL FLOURO TIME: 12.1 minutes
TOTAL RF DURATION: 1 minutes
REVERSAL OF HEPARIN: 35 mg of protamine, slow IV administration
COMPLICATIONS:
None
Intracardiac US shows no pericardial effusion post ablation.
SUMMARY:��
Complex left atrial mapping and ablation.
2 flutter mechanisms ablated�CTI flutter, mitral flutter cycle length 380 ms as well as Micra reentry at the mitral isthmus and extrapulmonary vein substrate at the roof of the left atrium and the keron terminalis.
RECOMMENDATIONS:
1. Ambulate in 4 hours
2. Resume anticoagulation
3.��Increase amiodarone to 200 mg daily
4.��IV diuretic as her left atrial pressure was 24 but consider same-day discharge on April 20
Copy to: Dr. Jillian Webster
--- NOTE | 2025-04-19 15:13 | CM ---
Chart reviewed. Patient is independent of ADLS, lives alone in a 1st floor apartment, 0 IDALIA, 0 DME. Plan is for the patient to return home. CM to follow
[2025-04-19] MEDS: LASIX 40 MG IV (16:01)
[2025-04-19] MEDS: PRAVACHOL 40 MG PO (17:08)
[2025-04-19] MEDS: SINGULAIR 10 MG PO (17:08)
--- NOTE | 2025-04-19 18:00 | PTCARENOTE ---
Pt received post ablation. Bilateral groin sites WNL. Room air sat 98%. Denies any pain or discomfort. Assisted oob to the BR and the chair at 1730. Gait steady, denies any lightheaded or dizziness.
[2025-04-19] MEDS: OCUVITE SOFTGEL 1 CAP PO (19:57)
[2025-04-19] MEDS: ELIQUIS 5 MG PO (19:57)
--- NOTE | 2025-04-19 21:13 | PTCARENOTE ---
Pt aaox3, AV paced on the monitor, HR 70's, BP soft, denies diazines, steady gait with ambulation. B/L groin dressing CDI, no swelling or bruising noted. Call tapia within reach, educated on POC and in agreement.
[2025-04-20 03:19] VITALS: BP 94/60
[2025-04-20] MEDS: TYLENOL 650 MG PO (03:48)
[2025-04-20 04:30] LABS: Hematocrit 30.3 % (37.0-47.0); Hemoglobin 10.2 g/dL (12.0-16.0); Mean Corp Hgb Conc. 33.7 g/dL (33.0-37.0); Mean Corpuscular Volume 95.0 fL (81.0-99.0); Platelet Count 158 10^3/uL (130-400); Red Cell Dist. Width 15.0 % (11.5-14.5)
[2025-04-20 04:52] LABS: Blood Urea Nitrogen 26 mg/dl (7-17); Calcium 8.2 mg/dl (8.4-10.2); Carbon Dioxide 21 mmol/L (22-30); Chloride 113 mmol/L (98-107); Estimated Creatinine Clearance 40 ml/min; Glucose 131 mg/dl (70-99); Magnesium 2.2 mg/dl (1.6-2.3); Potassium 4.1 mmol/L (3.5-5.1); Sodium 140 mmol/L (135-145); eGFR 56.25
[2025-04-20 06:00] VITALS: BMI 33.8
[2025-04-20] MEDS: SYNTHROID 75 MCG PO (06:13)
[2025-04-20 07:07] VITALS: BP 96/62
--- NOTE | 2025-04-20 07:31 | W.PN.CARDCBS ---
Today's Communication / Plan
-
Discharged to home today with continuation of amiodarone 200 mg daily and continuation of Eliquis 5 mg twice daily
Impression / Plan
-
Assessment/plan:
Paroxysmal atrial arrhythmias including atrial fibrillation atrial flutter and atrial tachycardia.
Hypertrophic obstructive cardiomyopathy
ICD in place
Patient underwent left atrial mapping and ablation of atrial tachyarrhythmias on April 19, 2025.
She underwent pulmonary venous isolation, left atrial posterior wall isolation, mitral annular flutter ablation and CTI ablation as well as keron terminalis atrial tachycardia ablation.
She remains in sinus rhythm/atrial ventricular paced with occasional PACs and short self terminating runs of PAT.
She is hemodynamically stable.
Overall she tells me she feels well and she like to go home today.
I reviewed discharge instructions. All of her questions have been answered.
Stable for discharge to home today
Total discharge time 32 minutes
Progress Note - Jewelry Manager
Subjective
Date of Service: April 20, 2025
She tells me she feels tired because she did not sleep well last night but otherwise feels okay. No chest pain shortness of breath palpitations or dizziness.
Objective
Labs:
04/20/25 03:29
04/20/25 03:29
Labs
Hgb 10.2 g/dL (12.0-16.0) L 04/20/25 03:29
Hct 30.3 % (37.0-47.0) L 04/20/25 03:29
Plt Count 158 10^3/uL (130-400) 04/20/25 03:29
PT 18.5 Sec (11.4-14.6) H 04/19/25 08:19
INR 1.49 04/19/25 08:19
Sodium 140 mmol/L (135-145) 04/20/25 03:29
Potassium 4.1 mmol/L (3.5-5.1) 04/20/25 03:29
BUN 26 mg/dl (7-17) H 04/20/25 03:29
Creatinine 1.0 mg/dL (0.6-1.0) 04/20/25 03:29
Glucose 131 mg/dl (70-99) H 04/20/25 03:29
Vital Signs and I&O:
Vital Signs
Temp Pulse Resp BP Pulse Ox
97.7 F 68 16 94/60 97
04/20/25 07:08 04/20/25 07:08 04/20/25 07:08 04/20/25 03:19 04/20/25 07:08
Vital Signs
Temp Pulse Resp BP Pulse Ox
97.7 F 68 16 94/60 97
04/20/25 07:08 04/20/25 07:08 04/20/25 07:08 04/20/25 03:19 04/20/25 07:08
Intake & Output
04/18/25 04/19/25 04/20/25 04/21/25
06:59 06:59 06:59 06:59
Intake Total 240 / 240
Output Total 600 / 600
Balance -360 / -360
Physical Exam
Physical Exam
Well-appearing elderly woman no acute distress
Regular rate and rhythm with normal S1 and S2 no S3 no S4 degree 1 or 6 apical systolic murmur no rubs.
Lungs clear to auscultation bilaterally
Abdomen soft nontender nondistended with normoactive bowel sounds
Right groin with no hematoma or bruits
+2 femoral and distal pulses of the lower extremities.
[2025-04-20] MEDS: ELIQUIS 5 MG PO (07:38)
[2025-04-20] MEDS: PACERONE 200 MG PO (07:39)
[2025-04-20] MEDS: OCUVITE SOFTGEL 1 CAP PO (07:50)
[2025-04-20] MEDS: FLOVENT 44 MCG INHALER 2 PUFF INH (08:30)
[2025-04-20 11:30] VITALS: BP 101/58
--- NOTE | 2025-04-20 12:15 | PTCARENOTE ---
Pt received this am with no c/o of chest pain or sob. Bilateral groin sites WNL. OOB ad kristina, gait steady. Pt states she's having some spasming in her arms when she goes to reach for something. Dr. Epperson aware. Pt discharged to home with her
daughter. Discharge instructions given and reviewed with good understanding and all questions answered.
[2025-04-23 08:07] LABS: ACT-LR - POC > 397 Seconds (116-155)
== END 2025-04-20 13:33 | disposition home or self-care (01) ==
LOC: CATH 08:02
PROVIDERS: Nurse Practitioner Adult Health; ATTENDING PHYSICIAN Internal Medicine Cardiovascular Disease; FAMILY PHYSICIAN Family Medicine
DX: I48.19 Other persistent atrial fibrillation (principal); I47.20 Ventricular tachycardia, unspecified; I10 Essential (primary) hypertension; E78.5 Hyperlipidemia, unspecified; E03.9 Hypothyroidism, unspecified; J45.909 Unspecified asthma, uncomplicated; F41.9 Anxiety disorder, unspecified; Z95.810 Presence of automatic (implantable) cardiac defibrillator; I48.92 Unspecified atrial flutter
CPT/HCPCS: C1894; C1730; C1769; C1766; C1892; C1759; C1733; 80048; 83735; 85027; 85347; 85610; 86850; 86900; 86901; 93005; 93655; 93656; 93657; 94640

== ENCOUNTER → 2025-05-08 09:58 | Outpatient (REF) | payer MEDICARE, SELFPAY ==
[2025-05-08 11:17] LABS: Hematocrit 36.8 % (37.0-47.0); Hemoglobin 11.8 g/dL (12.0-16.0); Mean Corp Hgb Conc. 32.1 g/dL (33.0-37.0); Mean Corpuscular Volume 97.9 fL (81.0-99.0); Nucleated Red Blood Cells % 0 %; Platelet Count 251 10^3/uL (130-400); Red Cell Dist. Width 15.0 % (11.5-14.5)
[2025-05-08 11:57] LABS: ALT (SGPT) 17 U/L (0-35); AST (SGOT) 18 U/L (14-36); Albumin 4.3 g/dl (3.5-5.0); Alkaline Phosphatase 101 U/L (38-126); Blood Urea Nitrogen 30 mg/dl (7-17); Calcium 8.9 mg/dl (8.4-10.2); Carbon Dioxide 26 mmol/L (22-30); Chloride 106 mmol/L (98-107); Glucose 89 mg/dl (70-99); Magnesium 2.5 mg/dl (1.6-2.3); Potassium 4.1 mmol/L (3.5-5.1); Sodium 140 mmol/L (135-145); Total Protein 7.1 g/dl (6.3-8.2); eGFR 50.17
== END ==
LOC: REG 09:58
PROVIDERS: ATTENDING PHYSICIAN Nurse Practitioner; FAMILY PHYSICIAN Family Medicine
DX: I48.19 Other persistent atrial fibrillation (principal); Z95.810 Presence of automatic (implantable) cardiac defibrillator
CPT/HCPCS: 36415; 80053; 83735; 83880; 85025

== ENCOUNTER → 2025-08-25 11:33 | Outpatient (REF) | payer MEDICARE, SELFPAY | LOC: RAD 11:33 | PROVIDERS: ATTENDING PHYSICIAN Specialist; FAMILY PHYSICIAN Family Medicine | DX: R27.8 Other lack of coordination (principal); R25.2 Cramp and spasm | CPT/HCPCS: 70450 ==

== ENCOUNTER → 2025-10-03 14:25 | Outpatient (REF) | payer MEDICARE, SELFPAY | LOC: WDC 14:25 | PROVIDERS: ATTENDING PHYSICIAN Family Medicine | DX: Z12.31 Encounter for screening mammogram for malignant neoplasm of breast (principal) | CPT/HCPCS: 77063; 77067 ==